=== PATIENT | male | born 1970 | race Caucasian/White ===

== ENCOUNTER 2016-08-27 15:00 | Emergency (ER) | payer BC ==
[~2016-08-27] VITALS: Ht 157.4 cm; Wt 72.6 kg
[2016-08-27] MEDS ORDERED: PREVACID30 M2 PO (15:14)
[2016-08-27] MEDS ORDERED: VENTOLIN H0.09 MG/AC INH (15:14)
[2016-08-27 16:11] LABS: BASO # 0.1 10*3/uL (0.0-0.1); BASO % 0.6 % (0.0-1.0); EOS # 0.3 10*3/uL (0.0-0.4); HEMOGLOBIN 15.4 g/dl (14.0-18.0); LYMPH # 2.8 10*3/uL (1.3-4.4); LYMPH % 35.4 % (27.0-41.0); MEAN CELL VOLUME 91.8 fl (80.0-94.0); MEAN CORPUSCULAR HGB 30.1 pg (27.0-31.0); MEAN CORPUSCULAR HGB CONC 32.8 g/dl (33.0-37.0); MEAN PLATELET VOLUME 9.3 fl (9.6-12.3); MONO # 0.9 10*3/uL (0.1-1.0); MONO % 11.6 % (3.0-9.0); NEUT # 3.7 10*3/uL (2.3-7.9); NEUT % 48.1 % (47.0-73.0); PLATELET COUNT AUTOMATED 199 10*3/uL (130-400); RED BLOOD COUNT 5.12 10*6/uL (4.50-5.90); RED CELL DISTRI WIDTH 13.5 % (0-14.5); WHITE BLOOD COUNT 7.8 10*3/uL (4.8-10.8)
[2016-08-27 16:26] LABS: ALBUMIN 3.5 gm/dl (3.1-4.5); ALKALINE PHOSPHATASE 59 U/L (45-117); BILIRUBIN, TOTAL 0.5 mg/dl (0.2-1.0); BUN 7 mg/dl (7-24); CARBON DIOXIDE 25 mmol/L (21-32); CHLORIDE 107 mmol/L (98-107); EST GLOM FILT AFRICAN AMERICAN > 60 ml/min; GLUCOSE 106 mg/dL (65-99); SGOT/AST 28 IU/L (3-35); SGPT/ALT 71 U/L (12-78); SODIUM 140 mmol/L (136-145); TOTAL PROTEIN 6.8 gm/dL (6.4-8.2)
== END 2016-08-27 17:29 | disposition home or self-care (01) ==
LOC: ED 15:00
PROVIDERS: Emergency Medicine
DX: J45.909 Unspecified asthma, uncomplicated (principal); F17.200 Nicotine dependence, unspecified, uncomplicated; Z79.899 Other long term (current) drug therapy

== ENCOUNTER → 2016-09-15 | Outpatient (CLI) | payer BC ==
[~2016-09-15] MED LIST: PREVACID30 M2 PO; VENTOLIN H0.09 MG/AC INH
== END | disposition home or self-care (01) ==
LOC: NM 09-11 07:00
DX: R10.13 Epigastric pain (principal)

== ENCOUNTER → 2017-01-17 | Day surgery (SDC) | payer OTHER ==
[~2017-01-17] VITALS: Ht 154.9 cm; Wt 88.9 kg
[~2017-01-17] MED LIST changes: +ALLERGY RELIEF10 M2 PO; +SERTRALINE HYD100 MG PO
--- NOTE | ~2017-01-17 | O ---
[place], [place] OPERATIVE NOTE NAME: ESTHER PEREZ UNIT #: [id number] ROOM: DOCTOR: NEIDA BAILEY MD BIRTHDATE: [birth year] DOS: 01/17/2017 INDICATIONS: A 46-year-old patient who has presented with blood in stool, undergoing investigation. ALLERGIES: No known medication. FAMILY HISTORY: Noncontributory. PAST SURGICAL HISTORY: Right hand. PAST MEDICAL HISTORY: Depression, dyspepsia, allergic rhinitis. SOCIAL HISTORY: Smoker, nonalcohol consumer. PROCEDURE: Today's procedure part of investigation is panendoscopy and colonoscopy. PREMEDICATION: Versed and Diprivan. SCOPE: Olympus forward-viewing gastroscope Q10 video. REPORT: After putting the patient in the left lateral position and after application of lubricant to the scope, the scope was introduced. Thereafter, under direct visualization, I advanced through the length of esophagus without difficulty. Hiatal hernia of 3 cm was noticed. Gastric pouch was entered. Gastritis was seen. Duodenal bulb, second and third part within normal limits. Antral biopsy obtained. The patient extubated, tolerated procedure well. IMPRESSION: Gastritis, hiatal hernia. PLAN AND DISCUSSION: We are going to continue with Prevacid or substituting with omeprazole 20 mg daily if there is a problem with refill of the prescription through insurance. Otherwise, I did not find any acute source of bleeding. I am going to proceed with colonoscopy. [place], [place] OPERATIVE NOTE NAME: ESTHER PEREZ UNIT #: [id number] ROOM: DOCTOR: NEIDA BAILEY MD BIRTHDATE: [birth year] NEIDA BAILEY MD CM:OPRECORD:OPERATIVE NOTE 1048 110 NEIDA BAILEY MD 01/17/17 1103 interface
--- NOTE | ~2017-01-17 | O ---
[place], [place] OPERATIVE NOTE NAME: ESTHER PEREZ UNIT #: [id number] ROOM: DOCTOR: LYNN PAYNE,NEIDA BIRTHDATE: [birth year] DOS: 01/17/2017 INDICATIONS: The patient has presented with rectal bleed, undergoing investigation. PROCEDURE: Today's procedure part of investigation is colonoscopy. PREMEDICATION: Versed and Diprivan. SCOPE: Olympus forward viewing colonoscope 10L video. REPORT: After putting the patient in the left lateral position and after application of lubricant to the scope, the scope was introduced. Thereafter, under direct visualization, advanced through the length of colon without difficulty. Base of the cecum explored, appendiceal orifice identified, and ileocecal valve was defined. No acute pathology was seen. Small hemorrhoid identified otherwise. The patient extubated, tolerated the procedure well. IMPRESSION: Small hemorrhoid. No acute pathology otherwise. PLAN AND DISCUSSION: High fiber fruit was recommended as diet. The patient was advised to have routine followup with you in office, p.r.n. visit with us in GI [facility]. Thank you very much indeed for your kind referral. NEIDA BAILEY MD CM:OPRECORD:OPERATIVE NOTE [id number] KEARA BAILEY MD 01/17/17 1105 interface
[2017-01-17 09:00] VITALS: BP 132/85
[2017-01-17 10:41] VITALS: BP 102/68
[2017-01-17 10:55] VITALS: BP 107/66
[2017-01-17 11:03] VITALS: BP 153/78
[2017-01-17 11:10] VITALS: BP 121/68
== END | disposition home or self-care (01) ==
LOC: SDC 01-12 08:45
DX: K64.9 Unspecified hemorrhoids (principal); K29.50 Unspecified chronic gastritis without bleeding; K44.9 Diaphragmatic hernia without obstruction or gangrene; F32.9 Major depressive disorder, single episode, unspecified; J30.9 Allergic rhinitis, unspecified; F17.210 Nicotine dependence, cigarettes, uncomplicated; J44.9 Chronic obstructive pulmonary disease, unspecified; Z98.890 Other specified postprocedural states

== ENCOUNTER 2017-04-03 23:23 | Inpatient (IN) | payer OTHER ==
[~2017-04-03] VITALS: Ht 154.9 cm; Wt 91.2 kg
--- NOTE | ~2017-04-03 | ST ---
[place], [place] EXERCISE STRESS TEST REPORT NAME: EST[facility]EREZ [facility] [id number] UNIT #: [id number] ROOM: 518 DOCTOR: SAMANTHA PAYNE,JULIANNA BIRTHDATE: [birth year] DOS: 04/04/2017 LEXISCAN STRESS TEST REFERRING PHYSICIAN: Dr. Ariel Corea. REASON FOR TEST: Chest pain. PHYSICAL EXAMINATION: NECK: Supple. LUNGS: Clear anteriorly. HEART: Regular rhythm. PROTOCOL: Lexiscan protocol. Maximum heart rate 132, peak blood pressure 162/72. SYMPTOMS: The patient is chest pain free. EKG: Resting EKG showed sinus rhythm. Stress EKG showed no ischemia, no arrhythmias. CONCLUSION: Clinically, the patient is chest pain free. EKG nonischemic. POST-STRESS COMPLICATIONS: None. The patient received total of 0.4 mg of Lexiscan. JULIANNA SINGH MD CM:STRESS:EXERCISE STRESS TEST REPORT [id number] JULIANNA SINGH MD
--- NOTE | ~2017-04-03 | CON ---
[place], [place] REPORT OF CONSULTATION [id number] UN[facility] #: [id number] ROOM: 518 DOCTOR: JULIANNA SINGH MD BIRTHDATE: [birth year] DOS: 04/04/2017 REFERRING PHYSICIAN: Dr. Corea. REASON FOR CONSULTATION: Chest pain. CLINICAL HISTORY: The patient is a 46-year-old gentleman with history of bipolar, asthma, obesity, came to the Emergency Room with shortness of breath and chest pain. The symptoms started on Sunday. His chest pain is in the midsternal area, nonradiating, mild in severity, it comes mostly at rest, lasts for a few minutes. No associated symptoms and pain relieves by itself. He described this as a sharp and aching sensation. His main complaint is progressive shortness of breath for the past several hours. He was scheduled to see Dr. Tay on 04/12/2017 for his asthma. He is also complaining of some progressive shortness of breath, but he does use albuterol inhaler from home. No edema, no palpitations, no dizziness, no PND or orthopnea. No cough or hemoptysis. No fever and chills. No nausea, vomiting, diarrhea. No genitourinary symptoms. No neurologic symptoms. No musculoskeletal symptoms. He did have some occasional dizziness, but no syncope, but one time, the chest pain did radiate down his both arms feeling like a tingling sensation. REVIEW OF SYSTEMS: Review of the 8 systems negative except as mentioned above. PAST MEDICAL HISTORY: 1. Asthma. 2. Acid reflux. 3. Bipolar. 4. Depression. PAST SURGICAL HISTORY: History of right arm surgery, history of colonoscopy and upper endoscopy. SOCIAL HISTORY: The patient does not drink alcohol, does not use drugs, but does smoke about one and half pack a day. FAMILY HISTORY: Noncontributory since he was adopted. ALLERGIES: No known drug allergies. HOME MEDICATIONS: Reviewed. PHYSICAL EXAMINATION: VITAL SIGNS: Blood pressure 130/70, pulse 68, respirations 18. GENERAL: Alert, comfortable, in no acute distress. HEAD AND NECK: Supple, no distended neck veins, no carotid bruit. Tongue was moist and pharynx was clear. CHEST: Symmetrical, nontender. LUNGS: A few scattered rhonchi. Good air entry bilaterally. No expiratory wheeze, no rales. HEART: Regular rhythm, no S3, no significant murmurs. No palpable thrills. [place], [place] REPORT OF CONSULTATION NAME: ESTHER PEREZ UNIT #: [id number] ROOM: 518 DOCTOR: SAMANTHA PAYNE,JULIANNA BIRTHDATE: [birth year] ABDOMEN: Nontender. Bowel sounds normal. No palpable masses. EXTREMITIES: Showed no edema. Distal pulses are palpable. The patient had healed scar on the right forearm. SKIN: Warm and dry. No cyanosis, no clubbing. RECTAL: Deferred. GENITOURINARY: Deferred. NEUROLOGIC: The patient is alert, oriented. No focal neurologic deficit. REVIEW OF THE DIAGNOSTIC TESTS: EKG, labs, rhythm strips reviewed. EKG showed normal sinus rhythm. Cardiac enzymes are unremarkable. IMPRESSION: 1. Chest pain, atypical, myocardial infarction ruled out. 2. Dyspnea, positive due to chronic obstructive pulmonary disease exacerbation. 3. Tobacco smoking. 4. History of asthma. 5. Bipolar disorder. 6. Overweight. RECOMMENDATIONS: 1. Chest pain, atypical EKG unremarkable. 2. Lexiscan stress test was scheduled to rule out ischemia due to symptoms and CAD risk factors. 3. A 2D echo was also ordered and is pending. 4. Risk factor modification to quit smoking and also diet, exercise, weight loss was discussed. Further recommendations based on his symptoms and about tests. Thank you, Dr. Corea, for asking us to evaluate this patient and we will follow the case along with you. JULIANNA SINGH MD CM:CONSTR:REPORT OF CONSULTATION 1426 04/05/17 0554 interface
[2017-04-03 23:24] VITALS: BP 155/96
[2017-04-03 23:56] LABS: BASO # 0.1 10*3/uL (0.0-0.1); BASO % 0.7 % (0.0-1.0); EOS # 0.5 10*3/uL (0.0-0.4); EOS % 6.1 % (1.0-4.0); HEMATOCRIT 43.2 % (42.0-52.0); HEMOGLOBIN 14.6 g/dl (14.0-18.0); LYMPH # 2.9 10*3/uL (1.3-4.4); LYMPH % 34.7 % (27.0-41.0); MEAN CELL VOLUME 85.5 fl (80.0-94.0); MEAN CORPUSCULAR HGB 28.9 pg (27.0-31.0); MEAN CORPUSCULAR HGB CONC 33.8 g/dl (33.0-37.0); MEAN PLATELET VOLUME 9.4 fl (9.6-12.3); MONO # 0.6 10*3/uL (0.1-1.0); MONO % 7.4 % (3.0-9.0); NEUT # 4.2 10*3/uL (2.3-7.9); NEUT % 50.9 % (47.0-73.0); PLATELET COUNT AUTOMATED 221 10*3/uL (130-400); RED BLOOD COUNT 5.05 10*6/uL (4.50-5.90); RED CELL DISTRI WIDTH 15.4 % (0-14.5); WHITE BLOOD COUNT 8.3 10*3/uL (4.8-10.8)
[2017-04-04 00:03] LABS: PROTHROMBIN TIME 10.4 SECONDS (9.0-12.4)
[2017-04-04 00:10] LABS: ALBUMIN 3.3 gm/dl (3.1-4.5); ALKALINE PHOSPHATASE 81 U/L (45-117); BILIRUBIN, TOTAL 0.2 mg/dl (0.2-1.0); BUN 12 mg/dl (7-24); CARBON DIOXIDE 28 mmol/L (21-32); CHLORIDE 108 mmol/L (98-107); EST GLOM FILT AFRICAN AMERICAN > 60 ml/min; GLUCOSE 113 mg/dL (65-99); MAGNESIUM 2.4 mg/dL (1.5-2.1); POTASSIUM 3.4 mmol/L (3.5-5.1); SGOT/AST 25 IU/L (3-35); SGPT/ALT 50 U/L (12-78); SODIUM 139 mmol/L (136-145); TOTAL PROTEIN 6.8 gm/dL (6.4-8.2)
[2017-04-04 00:11] LABS: TROPONIN I < 0.015 ng/ml (<0.045)
[2017-04-04 01:13] VITALS: BP 126/82
[2017-04-04 02:24] VITALS: BP 122/80
[2017-04-04 03:54] VITALS: BP 134/74
[2017-04-04 04:00] VITALS: BP 134/74
[2017-04-04] MEDS ORDERED: PROTONIX40 MG PO (04:06)
[2017-04-04] MEDS ORDERED: RISPERDAL1 M1 PO (04:08)
[2017-04-04 06:12] LABS: BASO % 0.4 % (0.0-1.0); EOS # 0.1 10*3/uL (0.0-0.4); EOS % 1.3 % (1.0-4.0); HEMATOCRIT 43.9 % (42.0-52.0); HEMOGLOBIN 14.8 g/dl (14.0-18.0); LYMPH # 0.9 10*3/uL (1.3-4.4); LYMPH % 11.3 % (27.0-41.0); MEAN CELL VOLUME 85.1 fl (80.0-94.0); MEAN CORPUSCULAR HGB 28.7 pg (27.0-31.0); MEAN CORPUSCULAR HGB CONC 33.7 g/dl (33.0-37.0); MEAN PLATELET VOLUME 9.7 fl (9.6-12.3); MONO # 0.2 10*3/uL (0.1-1.0); MONO % 2.9 % (3.0-9.0); NEUT # 6.6 10*3/uL (2.3-7.9); NEUT % 83.7 % (47.0-73.0); PLATELET COUNT AUTOMATED 216 10*3/uL (130-400); RED BLOOD COUNT 5.16 10*6/uL (4.50-5.90); RED CELL DISTRI WIDTH 15.4 % (0-14.5); WHITE BLOOD COUNT 7.9 10*3/uL (4.8-10.8)
[2017-04-04 06:34] LABS: BUN 12 mg/dl (7-24); CARBON DIOXIDE 27 mmol/L (21-32); CHLORIDE 108 mmol/L (98-107); CHOLESTEROL 157 mg/dL (<200); EST GLOM FILT AFRICAN AMERICAN > 60 ml/min; GLUCOSE 138 mg/dL (65-99); HDL CHOLESTEROL 32 mg/dl (40-60); LDL CHOLESTEROL 104 mg/dL (9-159); POTASSIUM 3.6 mmol/L (3.5-5.1); SODIUM 139 mmol/L (136-145); TRIGLYCERIDES 107 mg/dl (<150); VLDL CHOLESTEROL 21 mg/dL (6-40)
[2017-04-04 06:38] LABS: HEMOGLOBIN A1c 6.3 % (4.8-5.6)
[2017-04-04 06:47] LABS: FREE T4 0.97 ng/dl (0.76-1.46); THYROID STIM HORMONE (HS) 0.513 uIU/ml (0.358-4.75)
[2017-04-04 07:31] LABS: FOLIC ACID 18.39 ng/mL (>5.38); VITAMIN D, 25-HYDROXY 28.1 ng/mL (30-100)
[2017-04-04 08:00] VITALS: BP 129/69
[2017-04-04 12:00] VITALS: BP 142/81
[2017-04-04] MEDS ORDERED: VITAMIN D31000 UNIT PO (14:44)
[2017-04-04] MEDS ORDERED: PREDNISONE10 MG PO (14:44)
[2017-04-04] MEDS ORDERED: SINGULAIR10 M1 PO (14:44)
[2017-04-04] MEDS ORDERED: DULE1ARO INH (14:44)
== END 2017-04-04 16:43 | disposition home or self-care (01) | DRG 191 ==
LOC: ED 23:23 → 5E 04-04 02:22 → EDHOLD 04-04 02:22 → 5E 04-04 02:37
PROVIDERS: Emergency Medicine Emergency Medical Services; Family Medicine
DX: J44.1 Chronic obstructive pulmonary disease with (acute) exacerbation (principal); E44.0 Moderate protein-calorie malnutrition; E87.8 Other disorders of electrolyte and fluid balance, not elsewhere classified; J45.41 Moderate persistent asthma with (acute) exacerbation; E83.41 Hypermagnesemia; F31.30 Bipolar disorder, current episode depressed, mild or moderate severity, unspecified; R07.89 Other chest pain; E66.3 Overweight; K21.9 Gastro-esophageal reflux disease without esophagitis; E66.9 Obesity, unspecified; E87.6 Hypokalemia; F17.210 Nicotine dependence, cigarettes, uncomplicated; Z68.37 Body mass index [BMI] 37.0-37.9, adult; Z71.6 Tobacco abuse counseling

== ENCOUNTER → 2017-05-04 | Outpatient (CLI) | payer OTHER ==
[~2017-05-04] MED LIST changes: +DULE1ARO INH; +PREDNISONE10 MG PO; +PROTONIX40 MG PO; +RISPERDAL1 M1 PO; +SINGULAIR10 M1 PO; +VITAMIN D31000 UNIT PO
== END | disposition home or self-care (01) ==
LOC: US 05-03 16:00
DX: M79.605 Pain in left leg (principal); M79.604 Pain in right leg

== ENCOUNTER → 2017-05-28 | Outpatient (CLI) | payer OTHER ==
[2017-05-29 05:08] LABS: ALPHA-1-ANTITRYPSIN, SERUM 139 mg/dL (90-200)
== END | disposition home or self-care (01) ==
LOC: LAB 15:21
PROVIDERS: Internal Medicine Critical Care Medicine
DX: J44.9 Chronic obstructive pulmonary disease, unspecified (principal)

== ENCOUNTER 2017-07-15 14:49 | Emergency (ER) | payer OTHER ==
[~2017-07-15] VITALS: Ht 154.9 cm; Wt 88.5 kg
[2017-07-15] MEDS ORDERED: PREDNISONE10 MG PO (16:21)
[2017-07-15] MEDS ORDERED: GUAIFEN-CODEINE10 ML PO (16:21)
[2017-07-15] MEDS ORDERED: PROAIR HFA8.5 GM INH (16:21)
== END 2017-07-15 16:30 | disposition home or self-care (01) ==
LOC: ED 14:49
DX: R05 Cough (principal); R06.2 Wheezing; F17.200 Nicotine dependence, unspecified, uncomplicated; J44.9 Chronic obstructive pulmonary disease, unspecified

== ENCOUNTER 2017-11-29 01:04 | Inpatient (IN) | payer OTHER ==
[2017-11-29] VITALS (10 sets, daily range): BP systolic 111–151; BP diastolic 68–89
[~2017-11-29] VITALS: Ht 154.9 cm; Wt 93.2 kg
[~2017-11-29 01:04] MED LIST changes: +GUAIFEN-CODEINE10 ML PO; +PROAIR HFA8.5 GM INH
[2017-11-29] MEDS ORDERED: TRINTELLIX20 MG PO (01:15)
[2017-11-29] MEDS ORDERED: ARMODAFINIL150 MG PO (01:15)
[2017-11-29] MEDS ORDERED: ARIPIPRAZOLE5 MG PO (01:15)
[2017-11-29] MEDS ORDERED: DULER200 INH (01:17)
[2017-11-29] MEDS ORDERED: VENTOLIN 02.5 MG/3 M INH (01:17)
[2017-11-29 01:19] LABS: BASO # 0.1 10*3/uL (0.0-0.1); BASO % 0.7 % (0.0-1.0); EOS # 0.3 10*3/uL (0.0-0.4); EOS % 4.9 % (1.0-4.0); HEMATOCRIT 44.1 % (42.0-52.0); HEMOGLOBIN 14.1 g/dl (14.0-18.0); LYMPH # 2.1 10*3/uL (1.3-4.4); MEAN CELL VOLUME 82.1 fl (80.0-94.0); MEAN CORPUSCULAR HGB 26.3 pg (27.0-31.0); MEAN PLATELET VOLUME 8.8 fl (9.6-12.3); MONO # 0.6 10*3/uL (0.1-1.0); MONO % 8.9 % (3.0-9.0); NEUT # 3.7 10*3/uL (2.3-7.9); NEUT % 54.2 % (47.0-73.0); PLATELET COUNT AUTOMATED 196 10*3/uL (130-400); RED BLOOD COUNT 5.37 10*6/uL (4.50-5.90); RED CELL DISTRI WIDTH 17.9 % (0-14.5); WHITE BLOOD COUNT 6.8 10*3/uL (4.8-10.8)
[2017-11-29 01:30] LABS: ACT PARTIAL THROMBO TIME 25.2 SECONDS (20.8-31.5)
[2017-11-29 01:35] LABS: ALBUMIN 3.5 gm/dl (3.1-4.5); ALKALINE PHOSPHATASE 90 U/L (45-117); BUN 13 mg/dl (7-24); CHLORIDE 105 mmol/L (98-107); CREATININE 0.82 mg/dL (0.70-1.30); LIPASE 105 U/L (73-393); POTASSIUM 3.5 mmol/L (3.5-5.1); SGOT/AST 68 IU/L (3-35); SGPT/ALT 94 U/L (12-78); SODIUM 140 mmol/L (136-145); TOTAL PROTEIN 7.2 gm/dL (6.4-8.2)
[2017-11-29 01:36] LABS: TROPONIN I < 0.015 ng/ml (<0.045)
[2017-11-29 04:16] LABS: BASO % 0.4 % (0.0-1.0); EOS # 0.1 10*3/uL (0.0-0.4); EOS % 1.5 % (1.0-4.0); HEMATOCRIT 44.1 % (42.0-52.0); LYMPH # 1.8 10*3/uL (1.3-4.4); LYMPH % 24.9 % (27.0-41.0); MEAN CELL VOLUME 82.7 fl (80.0-94.0); MEAN CORPUSCULAR HGB 26.3 pg (27.0-31.0); MEAN CORPUSCULAR HGB CONC 31.7 g/dl (33.0-37.0); MEAN PLATELET VOLUME 9.2 fl (9.6-12.3); MONO # 0.2 10*3/uL (0.1-1.0); MONO % 3.1 % (3.0-9.0); NEUT # 5.2 10*3/uL (2.3-7.9); NEUT % 69.7 % (47.0-73.0); PLATELET COUNT AUTOMATED 214 10*3/uL (130-400); RED BLOOD COUNT 5.33 10*6/uL (4.50-5.90); WHITE BLOOD COUNT 7.4 10*3/uL (4.8-10.8)
[2017-11-29 04:30] LABS: ALBUMIN 3.7 gm/dl (3.1-4.5); ALKALINE PHOSPHATASE 100 U/L (45-117); BUN 13 mg/dl (7-24); CHLORIDE 106 mmol/L (98-107); CHOLESTEROL 163 mg/dL (<200); CREATININE 0.83 mg/dL (0.70-1.30); HDL CHOLESTEROL 32 mg/dl (40-60); LDL CHOLESTEROL 98 mg/dL (9-159); PHOSPHOROUS 1.4 mg/dL (2.5-4.9); POTASSIUM 3.6 mmol/L (3.5-5.1); SGOT/AST 197 IU/L (3-35); SGPT/ALT 185 U/L (12-78); SODIUM 138 mmol/L (136-145); TOTAL PROTEIN 7.3 gm/dL (6.4-8.2); TRIGLYCERIDES 163 mg/dl (<150); VLDL CHOLESTEROL 33 mg/dL (6-40)
[2017-11-29 04:34] LABS: THYROID STIM HORMONE (HS) 0.539 uIU/ml (0.358-4.75)
[2017-11-29 06:55] LABS: VITAMIN D, 25-HYDROXY 18.9 ng/mL (30-100)
[2017-11-29] MEDS ORDERED: FLOMAX0.4 MG PO (10:17)
[2017-11-30] VITALS: BP 142/84
[2017-11-30 06:06] LABS: BASO % 0.3 % (0.0-1.0); EOS % 0.3 % (1.0-4.0); HEMATOCRIT 42.3 % (42.0-52.0); HEMOGLOBIN 13.2 g/dl (14.0-18.0); LYMPH # 3.1 10*3/uL (1.3-4.4); LYMPH % 43.6 % (27.0-41.0); MEAN CELL VOLUME 83.3 fl (80.0-94.0); MEAN CORPUSCULAR HGB CONC 31.2 g/dl (33.0-37.0); MEAN PLATELET VOLUME 9.5 fl (9.6-12.3); MONO # 0.6 10*3/uL (0.1-1.0); MONO % 8.4 % (3.0-9.0); NEUT # 3.3 10*3/uL (2.3-7.9); NEUT % 47.1 % (47.0-73.0); PLATELET COUNT AUTOMATED 234 10*3/uL (130-400); RED BLOOD COUNT 5.08 10*6/uL (4.50-5.90); RED CELL DISTRI WIDTH 18.7 % (0-14.5)
[2017-11-30 06:11] LABS: ALBUMIN 3.6 gm/dl (3.1-4.5); BUN 15 mg/dl (7-24); CHLORIDE 108 mmol/L (98-107); CREATININE 0.75 mg/dL (0.70-1.30); PHOSPHOROUS 3.5 mg/dL (2.5-4.9); POTASSIUM 3.7 mmol/L (3.5-5.1); SGOT/AST 51 IU/L (3-35); SGPT/ALT 143 U/L (12-78); SODIUM 140 mmol/L (136-145); TOTAL PROTEIN 7.1 gm/dL (6.4-8.2)
[2017-11-30 06:12] LABS: ALKALINE PHOSPHATASE 86 U/L (45-117)
[2017-11-30 08:00] VITALS: BP 145/84
[2017-11-30] MEDS ORDERED: VITAMIN D-32000 UNIT PO (09:08)
[2017-11-30 10:08] LABS: HEPATITIS B SURFACE AG Negative (Negative); HEPATITIS C VIRUS ANTIBODY <0.1 s/co (0.0-0.9)
== END 2017-11-30 09:56 | disposition home or self-care (01) | DRG 392 ==
LOC: ED 01:04 → EDHOLD 02:47 → 4E 02:47
PROVIDERS: Internal Medicine; Internal Medicine Nephrology; Physician Assistant
PROC: 4A02XM4 Measurement of Cardiac Total Activity, External Approach (ICD-10-PCS; principal; 2017-11-29)
PROC: 3E073KZ Introduction of Other Diagnostic Substance into Coronary Artery, Percutaneous Approach (ICD-10-PCS; 2017-11-29)
DX: K21.9 Gastro-esophageal reflux disease without esophagitis (principal); D72.1 Eosinophilia; R65.10 Systemic inflammatory response syndrome (SIRS) of non-infectious origin without acute organ dysfunction; F31.30 Bipolar disorder, current episode depressed, mild or moderate severity, unspecified; R07.9 Chest pain, unspecified; E83.41 Hypermagnesemia; J44.9 Chronic obstructive pulmonary disease, unspecified; F17.200 Nicotine dependence, unspecified, uncomplicated; R00.0 Tachycardia, unspecified; R06.82 Tachypnea, not elsewhere classified; R73.9 Hyperglycemia, unspecified; R74.0 Nonspecific elevation of levels of transaminase and lactic acid dehydrogenase [LDH]; E66.09 Other obesity due to excess calories; Z79.899 Other long term (current) drug therapy; Z71.6 Tobacco abuse counseling; Z72.89 Other problems related to lifestyle; Z68.38 Body mass index [BMI] 38.0-38.9, adult

== ENCOUNTER → 2018-10-02 | Outpatient (CLI) | payer OTHER ==
[~2018-10-02] MED LIST changes: +ARIPIPRAZOLE5 MG PO; +ARMODAFINIL150 MG PO; +DULER200 INH; +FLOMAX0.4 MG PO; +TRINTELLIX20 MG PO; +VENTOLIN 02.5 MG/3 M INH; +VITAMIN D-32000 UNIT PO
== END | disposition home or self-care (01) ==
LOC: CARD 01:37
DX: R06.09 Other forms of dyspnea (principal)

== ENCOUNTER 2020-01-14 14:50 | Emergency (ER) | payer OTHER ==
[~2020-01-14] VITALS: Ht 152.4 cm; Wt 101.6 kg
[2020-01-14 15:29] LABS: BASO # 0.1 10*3/uL (0.0-0.1); BASO % 0.6 % (0.0-1.0); EOS # 0.5 10*3/uL (0.0-0.4); EOS % 5.6 % (1.0-4.0); HEMATOCRIT 49.8 % (42.0-52.0); LYMPH # 3.4 10*3/uL (1.3-4.4); LYMPH % 36.7 % (27.0-41.0); MEAN CELL VOLUME 90.5 fl (80.0-94.0); MEAN CORPUSCULAR HGB 30.5 pg (27.0-31.0); MEAN CORPUSCULAR HGB CONC 33.7 g/dl (33.0-37.0); MEAN PLATELET VOLUME 9.5 fl (9.6-12.3); MONO # 0.6 10*3/uL (0.1-1.0); NEUT # 4.7 10*3/uL (2.3-7.9); NEUT % 50.7 % (47.0-73.0); PLATELET COUNT AUTOMATED 252 10*3/uL (130-400); RED CELL DISTRI WIDTH 13.6 % (0-14.5); WHITE BLOOD COUNT 9.3 10*3/uL (4.8-10.8)
[2020-01-14 15:39] LABS: ACT PARTIAL THROMBO TIME 28.5 SECONDS (20.0-32.1)
[2020-01-14 15:45] LABS: ALBUMIN 3.5 gm/dl (3.1-4.5); ALKALINE PHOSPHATASE 77 U/L (45-117); BUN 14 mg/dl (7-24); CHLORIDE 107 mmol/L (98-107); CREATININE 0.85 mg/dL (0.70-1.30); LIPASE 115 U/L (73-393); SGOT/AST 35 IU/L (3-35); SGPT/ALT 80 U/L (12-78); SODIUM 143 mmol/L (136-145); TOTAL PROTEIN 7.2 gm/dL (6.4-8.2); TROPONIN I 0.036 ng/ml (<0.045)
[2020-01-14] MEDS ORDERED: PREDNISONE50 MG PO (18:08)
[2020-01-14] MEDS ORDERED: ZITHROMAX250 MG PO (18:08)
== END 2020-01-14 18:32 | disposition home or self-care (01) ==
LOC: ED 14:50
PROVIDERS: Emergency Medicine
DX: J20.9 Acute bronchitis, unspecified (principal); F17.200 Nicotine dependence, unspecified, uncomplicated; Z98.890 Other specified postprocedural states; Z79.899 Other long term (current) drug therapy

== ENCOUNTER → 2020-09-28 | Outpatient (CLI) | payer OTHER ==
[~2020-09-28] MED LIST changes: +PREDNISONE50 MG PO; +ZITHROMAX250 MG PO
== END | disposition home or self-care (01) ==
LOC: LAB 10:10
PROVIDERS: ATTEND Urology
DX: N40.1 Benign prostatic hyperplasia with lower urinary tract symptoms (principal)

== ENCOUNTER 2021-03-23 15:05 | Inpatient (IN) | payer OTHER ==
[~2021-03-23] VITALS: Ht 152.4 cm; Wt 90.7 kg
[2021-03-23 15:24] VITALS: BP 113/80
[2021-03-23 15:59] LABS: BASO # 0.1 10*3/uL (0.0-0.1); BASO % 0.9 % (0.0-1.0); EOS # 0.2 10*3/uL (0.0-0.4); EOS % 2.6 % (1.0-4.0); HEMATOCRIT 25.6 % (42.0-52.0); LYMPH # 1.9 10*3/uL (1.3-4.4); LYMPH % 27.2 % (27.0-41.0); MEAN CELL VOLUME 68.8 fl (80.0-94.0); MEAN CORPUSCULAR HGB 18.8 pg (27.0-31.0); MEAN CORPUSCULAR HGB CONC 27.3 g/dl (33.0-37.0); MEAN PLATELET VOLUME 9.3 fl (9.6-12.3); MONO # 0.4 10*3/uL (0.1-1.0); MONO % 5.8 % (3.0-9.0); NEUT # 4.5 10*3/uL (2.3-7.9); NEUT % 63.2 % (47.0-73.0); PLATELET COUNT AUTOMATED 299 10*3/uL (130-400); RED BLOOD COUNT 3.72 10*6/uL (4.50-5.90); RED CELL DISTRI WIDTH 17.8 % (0-14.5); WHITE BLOOD COUNT 7.1 10*3/uL (4.8-10.8)
[2021-03-23 16:13] LABS: ALBUMIN 3.4 gm/dl (3.1-4.5); ALKALINE PHOSPHATASE 88 U/L (45-117); BUN 11 mg/dl (7-24); CHLORIDE 108 mmol/L (98-107); CREATININE 0.89 mg/dL (0.70-1.30); LIPASE 91 U/L (73-393); POTASSIUM 3.6 mmol/L (3.5-5.1); SGOT/AST 17 IU/L (3-35); SGPT/ALT 26 U/L (12-78); SODIUM 140 mmol/L (136-145); TOTAL PROTEIN 7.4 gm/dL (6.4-8.2)
[2021-03-23 17:30] VITALS: BP 115/80
[2021-03-23 18:43] VITALS: BP 106/65
[2021-03-23 20:21] VITALS: BP 96/57
[2021-03-24] VITALS (11 sets, daily range): BP systolic 83–151; BP diastolic 27–78
[2021-03-24 05:11] LABS: ALBUMIN 3.1 gm/dl (3.1-4.5); BUN 12 mg/dl (7-24); CHLORIDE 109 mmol/L (98-107); CHOLESTEROL 127 mg/dL (<200); CREATININE 0.81 mg/dL (0.70-1.30); POTASSIUM 3.7 mmol/L (3.5-5.1); SGOT/AST 16 IU/L (3-35); SGPT/ALT 24 U/L (12-78); SODIUM 140 mmol/L (136-145); TRIGLYCERIDES 91 mg/dl (<150)
[2021-03-24 05:19] LABS: ALKALINE PHOSPHATASE 85 U/L (45-117); LDL CHOLESTEROL 76 mg/dL (9-159); THYROID STIM HORMONE (HS) 0.467 uIU/ml (0.358-4.75)
[2021-03-24 06:34] LABS: BASO # 0.1 10*3/uL (0.0-0.1); BASO % 0.8 % (0.0-1.0); EOS # 0.3 10*3/uL (0.0-0.4); EOS % 4.6 % (1.0-4.0); HEMATOCRIT 25.4 % (42.0-52.0); LYMPH # 1.8 10*3/uL (1.3-4.4); LYMPH % 29.7 % (27.0-41.0); MEAN CELL VOLUME 69.2 fl (80.0-94.0); MEAN CORPUSCULAR HGB 19.1 pg (27.0-31.0); MEAN CORPUSCULAR HGB CONC 27.6 g/dl (33.0-37.0); MEAN PLATELET VOLUME 10.4 fl (9.6-12.3); MONO # 0.5 10*3/uL (0.1-1.0); NEUT # 3.4 10*3/uL (2.3-7.9); NEUT % 56.6 % (47.0-73.0); PLATELET COUNT AUTOMATED 308 10*3/uL (130-400); RED BLOOD COUNT 3.67 10*6/uL (4.50-5.90); RED CELL DISTRI WIDTH 17.8 % (0-14.5)
[2021-03-24] MEDS ORDERED: ARIPIPRAZOLE15 MG PO (15:55)
[2021-03-24] MEDS ORDERED: BENZTROPINE ME0.5 MG PO (15:56)
[2021-03-24] MEDS ORDERED: HYDROXYZINE PAM50 MG PO (15:57)
[2021-03-25] VITALS (13 sets, daily range): BP systolic 118–158; BP diastolic 68–94
[2021-03-25 06:46] LABS: HEMATOCRIT 24.8 % (42.0-52.0); MEAN CELL VOLUME 68.1 fl (80.0-94.0); MEAN CORPUSCULAR HGB 18.7 pg (27.0-31.0); MEAN CORPUSCULAR HGB CONC 27.4 g/dl (33.0-37.0); MEAN PLATELET VOLUME 10.4 fl (9.6-12.3); PLATELET COUNT AUTOMATED 248 10*3/uL (130-400); RED BLOOD COUNT 3.64 10*6/uL (4.50-5.90); RED CELL DISTRI WIDTH 17.8 % (0-14.5); WHITE BLOOD COUNT 8.8 10*3/uL (4.8-10.8)
[2021-03-25 07:16] LABS: BASOPHILS 1 % (0-1); TOTAL CELLS COUNTED 100 #CELLS
[2021-03-25 07:17] LABS: MICROCYTOSIS SLIGHT; PLATELET SUFFICIENCY NORMAL (NORMAL); POLYCHROMASIA SLIGHT
[2021-03-25 07:21] LABS: ALBUMIN 2.9 gm/dl (3.1-4.5); ALKALINE PHOSPHATASE 81 U/L (45-117); BUN 14 mg/dl (7-24); CHLORIDE 113 mmol/L (98-107); CREATININE 0.73 mg/dL (0.70-1.30); POTASSIUM 3.7 mmol/L (3.5-5.1); SGOT/AST 22 IU/L (3-35); SGPT/ALT 32 U/L (12-78); SODIUM 143 mmol/L (136-145); TOTAL PROTEIN 6.6 gm/dL (6.4-8.2)
[2021-03-25 13:41] LABS: BASO % 0.5 % (0.0-1.0); EOS # 0.1 10*3/uL (0.0-0.4); EOS % 0.6 % (1.0-4.0); HEMATOCRIT 29.1 % (42.0-52.0); LYMPH # 1.9 10*3/uL (1.3-4.4); LYMPH % 21.7 % (27.0-41.0); MEAN CORPUSCULAR HGB CONC 27.8 g/dl (33.0-37.0); MEAN PLATELET VOLUME 10.2 fl (9.6-12.3); MONO # 0.6 10*3/uL (0.1-1.0); MONO % 7.3 % (3.0-9.0); NEUT # 6.1 10*3/uL (2.3-7.9); NEUT % 69.4 % (47.0-73.0); PLATELET COUNT AUTOMATED 243 10*3/uL (130-400); RED BLOOD COUNT 4.06 10*6/uL (4.50-5.90); RED CELL DISTRI WIDTH 19.6 % (0-14.5); WHITE BLOOD COUNT 8.8 10*3/uL (4.8-10.8)
[2021-03-25 13:42] LABS: MEAN CELL VOLUME 71.7 fl (80.0-94.0)
[2021-03-26] VITALS: BP 121/65
[2021-03-26 06:02] LABS: BASO % 0.3 % (0.0-1.0); EOS % 0.1 % (1.0-4.0); HEMATOCRIT 25.4 % (42.0-52.0); LYMPH # 2.1 10*3/uL (1.3-4.4); LYMPH % 30.7 % (27.0-41.0); MEAN CORPUSCULAR HGB 20.1 pg (27.0-31.0); MEAN CORPUSCULAR HGB CONC 28.7 g/dl (33.0-37.0); MEAN PLATELET VOLUME 10.3 fl (9.6-12.3); MONO # 0.5 10*3/uL (0.1-1.0); MONO % 7.5 % (3.0-9.0); NEUT # 4.2 10*3/uL (2.3-7.9); NUCLEATED RED BLOOD CELL 0.3 % (0.0-0.0); PLATELET COUNT AUTOMATED 224 10*3/uL (130-400); RED BLOOD COUNT 3.63 10*6/uL (4.50-5.90); RED CELL DISTRI WIDTH 19.1 % (0-14.5); WHITE BLOOD COUNT 6.8 10*3/uL (4.8-10.8)
[2021-03-26 06:12] LABS: BUN 14 mg/dl (7-24); CHLORIDE 113 mmol/L (98-107); CREATININE 0.72 mg/dL (0.70-1.30); POTASSIUM 4.1 mmol/L (3.5-5.1); SODIUM 143 mmol/L (136-145)
[2021-03-26 08:00] VITALS: BP 138/78
[2021-03-26 12:00] VITALS: BP 132/58
[2021-03-26 16:00] VITALS: BP 131/81
[2021-03-26 20:00] VITALS: BP 132/56
[2021-03-27] VITALS: BP 137/82
[2021-03-27 06:13] LABS: BASO % 0.5 % (0.0-1.0); EOS # 0.1 10*3/uL (0.0-0.4); EOS % 0.9 % (1.0-4.0); HEMATOCRIT 26.5 % (42.0-52.0); LYMPH # 2.8 10*3/uL (1.3-4.4); LYMPH % 33.6 % (27.0-41.0); MEAN CELL VOLUME 70.7 fl (80.0-94.0); MEAN CORPUSCULAR HGB 19.7 pg (27.0-31.0); MEAN CORPUSCULAR HGB CONC 27.9 g/dl (33.0-37.0); MEAN PLATELET VOLUME 10.6 fl (9.6-12.3); MONO # 0.6 10*3/uL (0.1-1.0); MONO % 7.5 % (3.0-9.0); NEUT # 4.7 10*3/uL (2.3-7.9); NEUT % 56.9 % (47.0-73.0); NUCLEATED RED BLOOD CELL 0.2 % (0.0-0.0); PLATELET COUNT AUTOMATED 240 10*3/uL (130-400); RED BLOOD COUNT 3.75 10*6/uL (4.50-5.90); RED CELL DISTRI WIDTH 19.7 % (0-14.5); WHITE BLOOD COUNT 8.2 10*3/uL (4.8-10.8)
[2021-03-27 06:16] LABS: BUN 12 mg/dl (7-24); CHLORIDE 112 mmol/L (98-107); CREATININE 0.73 mg/dL (0.70-1.30); POTASSIUM 3.8 mmol/L (3.5-5.1); SODIUM 142 mmol/L (136-145)
[2021-03-27 08:00] VITALS: BP 151/83
[2021-03-27 12:00] VITALS: BP 144/81
[2021-03-27 16:00] VITALS: BP 126/66
[2021-03-27 20:00] VITALS: BP 127/71
[2021-03-28] VITALS: BP 121/68
[2021-03-28 06:16] LABS: BASO % 0.4 % (0.0-1.0); EOS % 0.4 % (1.0-4.0); HEMATOCRIT 26.3 % (42.0-52.0); LYMPH # 2.3 10*3/uL (1.3-4.4); LYMPH % 29.3 % (27.0-41.0); MEAN CELL VOLUME 71.3 fl (80.0-94.0); MEAN CORPUSCULAR HGB 19.8 pg (27.0-31.0); MEAN CORPUSCULAR HGB CONC 27.8 g/dl (33.0-37.0); MEAN PLATELET VOLUME 10.3 fl (9.6-12.3); MONO # 0.5 10*3/uL (0.1-1.0); MONO % 6.8 % (3.0-9.0); NEUT % 62.7 % (47.0-73.0); NUCLEATED RED BLOOD CELL 0.3 % (0.0-0.0); PLATELET COUNT AUTOMATED 226 10*3/uL (130-400); RED BLOOD COUNT 3.69 10*6/uL (4.50-5.90); RED CELL DISTRI WIDTH 20.2 % (0-14.5)
[2021-03-28 08:00] VITALS: BP 151/89
[2021-03-28 12:00] VITALS: BP 144/85
[2021-03-28 16:00] VITALS: BP 150/76
[2021-03-28 20:00] VITALS: BP 139/73
[2021-03-29] VITALS: BP 157/75
[2021-03-29 08:00] VITALS: BP 154/86
[2021-03-29 08:19] LABS: BASO % 0.1 % (0.0-1.0); HEMATOCRIT 29.5 % (42.0-52.0); LYMPH # 1.7 10*3/uL (1.3-4.4); LYMPH % 17.9 % (27.0-41.0); MEAN CELL VOLUME 70.9 fl (80.0-94.0); MEAN CORPUSCULAR HGB 19.5 pg (27.0-31.0); MEAN CORPUSCULAR HGB CONC 27.5 g/dl (33.0-37.0); MEAN PLATELET VOLUME 10.4 fl (9.6-12.3); MONO # 0.6 10*3/uL (0.1-1.0); MONO % 5.8 % (3.0-9.0); NEUT # 7.2 10*3/uL (2.3-7.9); NEUT % 75.7 % (47.0-73.0); NUCLEATED RED BLOOD CELL 0.2 % (0.0-0.0); PLATELET COUNT AUTOMATED 248 10*3/uL (130-400); RED BLOOD COUNT 4.16 10*6/uL (4.50-5.90); RED CELL DISTRI WIDTH 20.6 % (0-14.5); WHITE BLOOD COUNT 9.6 10*3/uL (4.8-10.8)
[2021-03-29 08:33] LABS: BUN 16 mg/dl (7-24); CHLORIDE 105 mmol/L (98-107); CREATININE 0.82 mg/dL (0.70-1.30); POTASSIUM 4.2 mmol/L (3.5-5.1); SODIUM 137 mmol/L (136-145)
[2021-03-29] MEDS ORDERED: DULER200 INH (11:24)
[2021-03-29] MEDS ORDERED: DOXYCYCLINE MO100 M1 PO (11:24)
[2021-03-29] MEDS ORDERED: VENTOLIN 02.5 MG/3 M INH (11:24)
[2021-03-29] MEDS ORDERED: PREDNISONE10 MG PO ×2 (11:24)
[2021-03-29] MEDS ORDERED: PROTONIX40 MG PO (11:25)
[2021-03-29 12:00] VITALS: BP 142/69
== END 2021-03-29 12:52 | disposition home or self-care (01) | DRG 720 ==
LOC: ED 15:05 → 4E 17:20 → EDHOLD 17:20 → 4E 03-24 14:20
PROVIDERS: Family Medicine; Internal Medicine; Registered Nurse; Student in an Organized Health Care Education/Training Program; ADMIT Internal Medicine; ATTEND Internal Medicine
PROC: 0DJ08ZZ Inspection of Upper Intestinal Tract, Via Natural or Artificial Opening Endoscopic (ICD-10-PCS; 2021-03-24)
PROC: 30233N1 Transfusion of Nonautologous Red Blood Cells into Peripheral Vein, Percutaneous Approach (ICD-10-PCS; principal; 2021-03-25)
DX: A41.9 Sepsis, unspecified organism (principal); K64.9 Unspecified hemorrhoids; J20.9 Acute bronchitis, unspecified; J44.1 Chronic obstructive pulmonary disease with (acute) exacerbation; E87.8 Other disorders of electrolyte and fluid balance, not elsewhere classified; J44.0 Chronic obstructive pulmonary disease with (acute) lower respiratory infection; E83.41 Hypermagnesemia; R65.20 Severe sepsis without septic shock; E44.0 Moderate protein-calorie malnutrition; D50.9 Iron deficiency anemia, unspecified; J96.01 Acute respiratory failure with hypoxia; K62.5 Hemorrhage of anus and rectum; F17.210 Nicotine dependence, cigarettes, uncomplicated; Z71.6 Tobacco abuse counseling; Z79.51 Long term (current) use of inhaled steroids; Z79.899 Other long term (current) drug therapy; Z68.39 Body mass index [BMI] 39.0-39.9, adult

== ENCOUNTER 2021-04-26 12:17 | Inpatient (IN) | payer OTHER ==
[~2021-04-26] VITALS: Ht 152.4 cm; Wt 94.4 kg
[2021-04-26] VITALS (10 sets, daily range): BP systolic 127–146; BP diastolic 78–93
[~2021-04-26 12:17] MED LIST changes: +ARIPIPRAZOLE15 MG PO; +BENZTROPINE ME0.5 MG PO; +DOXYCYCLINE MO100 M1 PO; +HYDROXYZINE PAM50 MG PO
[2021-04-26 17:08] LABS: BASO # 0.1 10*3/uL (0.0-0.1); BASO % 0.6 % (0.0-1.0); EOS # 0.3 10*3/uL (0.0-0.4); EOS % 3.7 % (1.0-4.0); LYMPH # 2.9 10*3/uL (1.3-4.4); LYMPH % 34.2 % (27.0-41.0); MEAN CELL VOLUME 67.3 fl (80.0-94.0); MEAN CORPUSCULAR HGB 18.3 pg (27.0-31.0); MEAN CORPUSCULAR HGB CONC 27.1 g/dl (33.0-37.0); MEAN PLATELET VOLUME 8.6 fl (9.6-12.3); MONO # 0.6 10*3/uL (0.1-1.0); MONO % 6.6 % (3.0-9.0); NEUT # 4.6 10*3/uL (2.3-7.9); NEUT % 54.4 % (47.0-73.0); NUCLEATED RED BLOOD CELL 0.2 % (0.0-0.0); PLATELET COUNT AUTOMATED 348 10*3/uL (130-400); RED BLOOD COUNT 4.16 10*6/uL (4.50-5.90); RED CELL DISTRI WIDTH 21.2 % (0-14.5); WHITE BLOOD COUNT 8.5 10*3/uL (4.8-10.8)
[2021-04-26 17:23] LABS: ALBUMIN 3.2 gm/dl (3.1-4.5); ALKALINE PHOSPHATASE 83 U/L (45-117); BUN 13 mg/dl (7-24); CHLORIDE 106 mmol/L (98-107); CREATININE 0.89 mg/dL (0.70-1.30); POTASSIUM 3.8 mmol/L (3.5-5.1); SGOT/AST 15 IU/L (3-35); SGPT/ALT 34 U/L (12-78); SODIUM 140 mmol/L (136-145); TOTAL PROTEIN 7.2 gm/dL (6.4-8.2)
[2021-04-27 00:19] LABS: BASO # 0.1 10*3/uL (0.0-0.1); BASO % 0.7 % (0.0-1.0); EOS # 0.4 10*3/uL (0.0-0.4); EOS % 4.1 % (1.0-4.0); HEMATOCRIT 29.5 % (42.0-52.0); LYMPH # 2.6 10*3/uL (1.3-4.4); LYMPH % 29.8 % (27.0-41.0); MEAN CORPUSCULAR HGB 19.7 pg (27.0-31.0); MEAN CORPUSCULAR HGB CONC 27.8 g/dl (33.0-37.0); MEAN PLATELET VOLUME 9.6 fl (9.6-12.3); MONO # 0.7 10*3/uL (0.1-1.0); MONO % 7.9 % (3.0-9.0); PLATELET COUNT AUTOMATED 301 10*3/uL (130-400); RED BLOOD COUNT 4.17 10*6/uL (4.50-5.90); RED CELL DISTRI WIDTH 23.8 % (0-14.5); WHITE BLOOD COUNT 8.8 10*3/uL (4.8-10.8)
[2021-04-27 00:20] LABS: MEAN CELL VOLUME 70.7 fl (80.0-94.0)
[2021-04-27 00:41] VITALS: BP 126/66
[2021-04-27 04:53] VITALS: BP 137/77
[2021-04-27 05:49] LABS: BUN 14 mg/dl (7-24); CHLORIDE 108 mmol/L (98-107); CREATININE 0.84 mg/dL (0.70-1.30); SODIUM 140 mmol/L (136-145)
[2021-04-27 06:16] LABS: BASO # 0.1 10*3/uL (0.0-0.1); BASO % 0.7 % (0.0-1.0); EOS # 0.3 10*3/uL (0.0-0.4); EOS % 4.2 % (1.0-4.0); HEMATOCRIT 28.9 % (42.0-52.0); LYMPH # 2.1 10*3/uL (1.3-4.4); LYMPH % 27.7 % (27.0-41.0); MEAN CELL VOLUME 69.6 fl (80.0-94.0); MEAN CORPUSCULAR HGB 19.5 pg (27.0-31.0); MEAN PLATELET VOLUME 9.6 fl (9.6-12.3); MONO # 0.5 10*3/uL (0.1-1.0); MONO % 7.2 % (3.0-9.0); NEUT # 4.5 10*3/uL (2.3-7.9); NEUT % 59.5 % (47.0-73.0); PLATELET COUNT AUTOMATED 330 10*3/uL (130-400); RED BLOOD COUNT 4.15 10*6/uL (4.50-5.90); RED CELL DISTRI WIDTH 23.3 % (0-14.5); WHITE BLOOD COUNT 7.5 10*3/uL (4.8-10.8)
[2021-04-27 10:40] VITALS: BP 129/83
[2021-04-27 13:42] VITALS: BP 140/86
[2021-04-27 15:50] VITALS: BP 138/86
[2021-04-27 20:00] VITALS: BP 135/77
[2021-04-28] VITALS: BP 147/82
[2021-04-28 06:50] LABS: BASO # 0.1 10*3/uL (0.0-0.1); BASO % 0.8 % (0.0-1.0); EOS # 0.3 10*3/uL (0.0-0.4); EOS % 4.2 % (1.0-4.0); HEMATOCRIT 31.1 % (42.0-52.0); LYMPH # 2.3 10*3/uL (1.3-4.4); MEAN CELL VOLUME 69.7 fl (80.0-94.0); MEAN CORPUSCULAR HGB 19.3 pg (27.0-31.0); MEAN CORPUSCULAR HGB CONC 27.7 g/dl (33.0-37.0); MEAN PLATELET VOLUME 9.4 fl (9.6-12.3); MONO # 0.5 10*3/uL (0.1-1.0); MONO % 7.1 % (3.0-9.0); NEUT # 3.5 10*3/uL (2.3-7.9); NEUT % 52.6 % (47.0-73.0); PLATELET COUNT AUTOMATED 334 10*3/uL (130-400); RED BLOOD COUNT 4.46 10*6/uL (4.50-5.90); RED CELL DISTRI WIDTH 23.3 % (0-14.5); WHITE BLOOD COUNT 6.7 10*3/uL (4.8-10.8)
[2021-04-28 07:23] LABS: BUN 12 mg/dl (7-24); CHLORIDE 107 mmol/L (98-107); POTASSIUM 3.8 mmol/L (3.5-5.1); SODIUM 139 mmol/L (136-145)
[2021-04-28 07:26] LABS: CREATININE 0.78 mg/dL (0.70-1.30)
[2021-04-28 08:00] VITALS: BP 139/82
[2021-04-28 12:00] VITALS: BP 125/78
== END 2021-04-28 14:25 | disposition home or self-care (01) | DRG 253 ==
LOC: ED 12:17 → 4E 18:19 → EDHOLD 18:19 → 4E 04-27 15:33
PROVIDERS: Emergency Medicine; Hospitalist; Internal Medicine; ADMIT Student in an Organized Health Care Education/Training Program; ATTEND Student in an Organized Health Care Education/Training Program
PROC: 30233N1 Transfusion of Nonautologous Red Blood Cells into Peripheral Vein, Percutaneous Approach (ICD-10-PCS; principal; 2021-04-26)
DX: K62.5 Hemorrhage of anus and rectum (principal); J45.909 Unspecified asthma, uncomplicated; K21.9 Gastro-esophageal reflux disease without esophagitis; F31.30 Bipolar disorder, current episode depressed, mild or moderate severity, unspecified; D50.9 Iron deficiency anemia, unspecified; E83.41 Hypermagnesemia; R73.9 Hyperglycemia, unspecified; F17.210 Nicotine dependence, cigarettes, uncomplicated; Z71.6 Tobacco abuse counseling; J44.9 Chronic obstructive pulmonary disease, unspecified; Z79.51 Long term (current) use of inhaled steroids; Z79.899 Other long term (current) drug therapy

== ENCOUNTER 2021-08-10 08:34 | Inpatient (IN) | payer OTHER ==
[2021-08-10] VITALS (14 sets, daily range): BP systolic 109–141; BP diastolic 59–84
[~2021-08-10] VITALS: Ht 152 cm; Wt 100.0 kg
[2021-08-10] MEDS ORDERED: ALTOPREV20 MG PO (08:46)
[2021-08-10] MEDS ORDERED: LISINOPRIL20 MG PO (08:46)
[2021-08-10] MEDS ORDERED: TRINTELLIX20 MG PO (08:47)
[2021-08-10 09:50] LABS: ALBUMIN 3.2 gm/dl (3.1-4.5); ALKALINE PHOSPHATASE 96 U/L (45-117); BUN 8 mg/dl (7-24); CHLORIDE 104 mmol/L (98-107); CREATININE 1.04 mg/dL (0.70-1.30); POTASSIUM 3.8 mmol/L (3.5-5.1); SGOT/AST 11 IU/L (3-35); SGPT/ALT 25 U/L (12-78); SODIUM 136 mmol/L (136-145); TOTAL PROTEIN 7.3 gm/dL (6.4-8.2)
[2021-08-10 10:08] LABS: MEAN CELL VOLUME 63.3 fl (80.0-94.0); MEAN CORPUSCULAR HGB 15.8 pg (27.0-31.0); MEAN CORPUSCULAR HGB CONC 24.9 g/dl (33.0-37.0); MEAN PLATELET VOLUME 10.3 fl (9.6-12.3); NUCLEATED RED BLOOD CELL 0.1 10*3/uL (0.0-0.0); NUCLEATED RED BLOOD CELL 0.7 % (0.0-0.0); PLATELET COUNT AUTOMATED 294 10*3/uL (130-400); RED BLOOD COUNT 3.11 10*6/uL (4.50-5.90); RED CELL DISTRI WIDTH 21.2 % (0-14.5); WHITE BLOOD COUNT 8.2 10*3/uL (4.8-10.8)
[2021-08-10 10:10] LABS: HEMATOCRIT 19.7 % (42.0-52.0)
[2021-08-10 10:12] LABS: ATYPICAL LYMPHS 1 % (0-0); BASOPHILS 2 % (0-1); MICROCYTOSIS MODERATE; OVALOCYTES FEW; POLYCHROMASIA SLIGHT; TOTAL CELLS COUNTED 100 #CELLS
[2021-08-10 10:13] LABS: PLATELET SUFFICIENCY NORMAL (NORMAL); SCHISTOCYTES FEW
[2021-08-10 17:31] LABS: BASO # 0.1 10*3/uL (0.0-0.1); BASO % 0.8 % (0.0-1.0); EOS # 0.3 10*3/uL (0.0-0.4); EOS % 2.5 % (1.0-4.0); HEMATOCRIT 26.7 % (42.0-52.0); LYMPH # 2.5 10*3/uL (1.3-4.4); MEAN CORPUSCULAR HGB 18.5 pg (27.0-31.0); MEAN CORPUSCULAR HGB CONC 27.7 g/dl (33.0-37.0); MEAN PLATELET VOLUME 10.1 fl (9.6-12.3); MONO # 0.8 10*3/uL (0.1-1.0); MONO % 7.8 % (3.0-9.0); NEUT # 6.4 10*3/uL (2.3-7.9); NEUT % 63.6 % (47.0-73.0); NUCLEATED RED BLOOD CELL 0.1 10*3/uL (0.0-0.0); NUCLEATED RED BLOOD CELL 0.6 % (0.0-0.0); PLATELET COUNT AUTOMATED 322 10*3/uL (130-400); RED BLOOD COUNT 3.99 10*6/uL (4.50-5.90); RED CELL DISTRI WIDTH 27.1 % (0-14.5)
[2021-08-10 17:32] LABS: MEAN CELL VOLUME 66.9 fl (80.0-94.0)
[2021-08-11] VITALS (13 sets, daily range): BP systolic 112–139; BP diastolic 60–88
[2021-08-11 06:25] LABS: BASO # 0.1 10*3/uL (0.0-0.1); BASO % 0.7 % (0.0-1.0); EOS # 0.3 10*3/uL (0.0-0.4); EOS % 4.1 % (1.0-4.0); LYMPH % 26.7 % (27.0-41.0); MEAN CELL VOLUME 66.7 fl (80.0-94.0); MEAN CORPUSCULAR HGB 18.7 pg (27.0-31.0); MEAN PLATELET VOLUME 10.1 fl (9.6-12.3); MONO # 0.6 10*3/uL (0.1-1.0); NEUT # 4.5 10*3/uL (2.3-7.9); NUCLEATED RED BLOOD CELL 0.3 % (0.0-0.0); PLATELET COUNT AUTOMATED 278 10*3/uL (130-400); RED BLOOD COUNT 3.75 10*6/uL (4.50-5.90); RED CELL DISTRI WIDTH 26.5 % (0-14.5); WHITE BLOOD COUNT 7.5 10*3/uL (4.8-10.8)
[2021-08-11 06:31] LABS: ACT PARTIAL THROMBO TIME 27.3 SECONDS (20.0-32.1)
[2021-08-11 06:34] LABS: BUN 11 mg/dl (7-24); CHLORIDE 104 mmol/L (98-107); CREATININE 0.92 mg/dL (0.70-1.30); SODIUM 138 mmol/L (136-145)
[2021-08-12] VITALS: BP 120/69
[2021-08-12 06:24] LABS: BASO % 0.2 % (0.0-1.0); EOS # 0.2 10*3/uL (0.0-0.4); EOS % 1.2 % (1.0-4.0); HEMATOCRIT 26.7 % (42.0-52.0); LYMPH % 15.2 % (27.0-41.0); MEAN CORPUSCULAR HGB 19.6 pg (27.0-31.0); MEAN CORPUSCULAR HGB CONC 28.5 g/dl (33.0-37.0); MEAN PLATELET VOLUME 9.9 fl (9.6-12.3); MONO # 1.2 10*3/uL (0.1-1.0); MONO % 9.1 % (3.0-9.0); NEUT # 9.6 10*3/uL (2.3-7.9); NEUT % 73.8 % (47.0-73.0); PLATELET COUNT AUTOMATED 284 10*3/uL (130-400); RED BLOOD COUNT 3.87 10*6/uL (4.50-5.90); RED CELL DISTRI WIDTH 28.7 % (0-14.5); WHITE BLOOD COUNT 12.9 10*3/uL (4.8-10.8)
[2021-08-12 06:26] LABS: BUN 12 mg/dl (7-24); CHLORIDE 106 mmol/L (98-107); CREATININE 0.86 mg/dL (0.70-1.30); POTASSIUM 3.8 mmol/L (3.5-5.1); SODIUM 138 mmol/L (136-145)
[2021-08-12 08:00] VITALS: BP 130/85
[2021-08-12] MEDS ORDERED: COLACE100 MG PO (10:27)
[2021-08-12 12:00] VITALS: BP 136/85
== END 2021-08-12 13:10 | disposition home or self-care (01) | DRG 226 ==
LOC: ED 08:34 → 4E 10:20 → EDHOLD 10:20 → 4E 20:39
PROVIDERS: Internal Medicine; ADMIT Internal Medicine; ATTEND Internal Medicine
PROC: 30233N1 Transfusion of Nonautologous Red Blood Cells into Peripheral Vein, Percutaneous Approach (ICD-10-PCS; 2021-08-10)
PROC: 06BY0ZC Excision of Hemorrhoidal Plexus, Open Approach (ICD-10-PCS; principal; 2021-08-11)
DX: K64.8 Other hemorrhoids (principal); K92.2 Gastrointestinal hemorrhage, unspecified; E66.01 Morbid (severe) obesity due to excess calories; E44.1 Mild protein-calorie malnutrition; Z68.41 Body mass index [BMI] 40.0-44.9, adult; F31.30 Bipolar disorder, current episode depressed, mild or moderate severity, unspecified; K21.9 Gastro-esophageal reflux disease without esophagitis; J45.909 Unspecified asthma, uncomplicated; J44.9 Chronic obstructive pulmonary disease, unspecified; D50.0 Iron deficiency anemia secondary to blood loss (chronic); R73.9 Hyperglycemia, unspecified; F17.210 Nicotine dependence, cigarettes, uncomplicated; Z71.6 Tobacco abuse counseling; Z79.51 Long term (current) use of inhaled steroids; Z79.899 Other long term (current) drug therapy

== ENCOUNTER 2021-09-08 11:43 | Inpatient (IN) | payer OTHER ==
[~2021-09-08] VITALS: Ht 152.4 cm; Wt 93.2 kg
[~2021-09-08 11:43] MED LIST changes: +ALTOPREV20 MG PO; +COLACE100 MG PO; +LISINOPRIL20 MG PO
[2021-09-08 11:51] VITALS: BP 118/68
[2021-09-08 12:28] LABS: HEMATOCRIT 30.7 % (42.0-52.0); MEAN CELL VOLUME 65.2 fl (80.0-94.0); MEAN CORPUSCULAR HGB 18.7 pg (27.0-31.0); MEAN CORPUSCULAR HGB CONC 28.7 g/dl (33.0-37.0); MEAN PLATELET VOLUME 9.2 fl (9.6-12.3); PLATELET COUNT AUTOMATED 204 10*3/uL (130-400); RED BLOOD COUNT 4.71 10*6/uL (4.50-5.90); RED CELL DISTRI WIDTH 25.6 % (0-14.5); WHITE BLOOD COUNT 7.9 10*3/uL (4.8-10.8)
[2021-09-08 12:29] VITALS: BP 121/59
[2021-09-08 12:33] LABS: LYMPH % 21.7 % (27.0-41.0); MONO % 14.6 % (3.0-9.0); NEUT % 61.8 % (47.0-73.0)
[2021-09-08 12:34] LABS: BASO % 0.5 % (0.0-1.0); EOS # 0.1 10*3/uL (0.0-0.4); LYMPH # 1.7 10*3/uL (1.3-4.4); MONO # 1.2 10*3/uL (0.1-1.0); NEUT # 4.9 10*3/uL (2.3-7.9)
[2021-09-08 12:38] LABS: ACT PARTIAL THROMBO TIME 28.5 SECONDS (20.0-32.1); INTERNATIONAL NORM RATIO 1.1 (2.0-3.5)
[2021-09-08 12:44] LABS: ALBUMIN 3.4 gm/dl (3.1-4.5); ALKALINE PHOSPHATASE 77 U/L (45-117); BUN 7 mg/dl (7-24); CHLORIDE 104 mmol/L (98-107); CREATININE 0.98 mg/dL (0.70-1.30); POTASSIUM 3.3 mmol/L (3.5-5.1); SGOT/AST 19 IU/L (3-35); SGPT/ALT 29 U/L (12-78); SODIUM 137 mmol/L (136-145); TOTAL PROTEIN 7.2 gm/dL (6.4-8.2)
[2021-09-08 12:46] LABS: ETHYL ALCOHOL < 3.0 mg/dl (<3)
[2021-09-08 15:23] LABS: BILIRUBIN Negative (Negative); BLOOD Negative (Negative); CLARITY Clear (Clear); COLOR Yellow (Yellow); GLUCOSE Negative (Negative); KETONE Negative (Negative); LEUKO ESTERASE Negative (Negative); NITRITE Negative (Negative); PH 7.5 (4.5-8.0); UROBILINOGEN 0.2 E.U./dl (0.0-1.0)
[2021-09-08 15:37] LABS: BACTERIA TRACE; WBC 0-2 wbc/hpf (0-5)
[2021-09-08 17:49] LABS: ABG BASE EXCESS 3.8 mmol/L (-2.0-2.0); ARTERIAL BLOOD GAS PH 7.49 (7.35-7.45); ARTERIAL BLOOD GAS PO2 70.9 (80-90)
[2021-09-08 19:40] VITALS: BP 114/62
[2021-09-08 22:52] VITALS: BP 110/64
[2021-09-08 23:51] VITALS: BP 135/69
[2021-09-09] MEDS ORDERED: OMEPRAZOLE MAGN20 MG PO (03:39)
[2021-09-09 06:21] LABS: HEMATOCRIT 31.7 % (42.0-52.0); LYMPH # 1.1 10*3/uL (1.3-4.4); LYMPH % 45.1 % (27.0-41.0); MEAN CELL VOLUME 66.6 fl (80.0-94.0); MEAN CORPUSCULAR HGB 18.5 pg (27.0-31.0); MEAN CORPUSCULAR HGB CONC 27.8 g/dl (33.0-37.0); MEAN PLATELET VOLUME 9.4 fl (9.6-12.3); MONO # 0.1 10*3/uL (0.1-1.0); MONO % 4.2 % (3.0-9.0); NEUT # 1.2 10*3/uL (2.3-7.9); NEUT % 50.7 % (47.0-73.0); PLATELET COUNT AUTOMATED 219 10*3/uL (130-400); RED BLOOD COUNT 4.76 10*6/uL (4.50-5.90); RED CELL DISTRI WIDTH 25.9 % (0-14.5); WHITE BLOOD COUNT 2.4 10*3/uL (4.8-10.8)
[2021-09-09 06:39] LABS: BUN 11 mg/dl (7-24); CHLORIDE 106 mmol/L (98-107); CREATININE 0.83 mg/dL (0.70-1.30); SODIUM 138 mmol/L (136-145)
[2021-09-09 06:40] LABS: POTASSIUM 4.6 mmol/L (3.5-5.1)
[2021-09-09 08:00] VITALS: BP 115/75
[2021-09-09 12:00] VITALS: BP 120/71
[2021-09-09] MEDS ORDERED: PREDNISONE50 MG PO (12:34)
[2021-09-09] MEDS ORDERED: ZITHROMAX250 MG PO (12:34)
[2021-09-09] MEDS ORDERED: OMNICEF300 MG PO (12:35)
== END 2021-09-09 13:45 | disposition home or self-care (01) | DRG 720 ==
LOC: ED 11:43 → EDHOLD 16:30 → 4E 16:30 → EDHOLD 17:33 → 4E 22:10
PROVIDERS: Emergency Medicine; Internal Medicine; ADMIT Internal Medicine; ATTEND Internal Medicine
DX: A41.9 Sepsis, unspecified organism (principal); U07.1 COVID-19; J44.1 Chronic obstructive pulmonary disease with (acute) exacerbation; E87.2 Acidosis; R65.20 Severe sepsis without septic shock; F17.210 Nicotine dependence, cigarettes, uncomplicated; K21.9 Gastro-esophageal reflux disease without esophagitis; J45.909 Unspecified asthma, uncomplicated; F31.30 Bipolar disorder, current episode depressed, mild or moderate severity, unspecified; E87.6 Hypokalemia; J12.82 Pneumonia due to coronavirus disease 2019; J44.0 Chronic obstructive pulmonary disease with (acute) lower respiratory infection; Z79.51 Long term (current) use of inhaled steroids; Z79.2 Long term (current) use of antibiotics; Z79.899 Other long term (current) drug therapy; Z71.6 Tobacco abuse counseling

== ENCOUNTER 2021-12-19 19:09 | Inpatient (IN) | payer OTHER ==
[~2021-12-19] VITALS: Ht 152.4 cm; Wt 100.7 kg
[~2021-12-19 19:09] MED LIST changes: +OMEPRAZOLE MAGN20 MG PO; +OMNICEF300 MG PO
[2021-12-19 19:14] VITALS: BP 126/79
[2021-12-19 19:40] LABS: BASO # 0.1 10*3/uL (0.0-0.1); EOS # 0.5 10*3/uL (0.0-0.4); EOS % 5.5 % (1.0-4.0); HEMATOCRIT 36.4 % (42.0-52.0); LYMPH # 3.7 10*3/uL (1.3-4.4); LYMPH % 40.4 % (27.0-41.0); MEAN CELL VOLUME 66.5 fl (80.0-94.0); MEAN CORPUSCULAR HGB 18.1 pg (27.0-31.0); MEAN CORPUSCULAR HGB CONC 27.2 g/dl (33.0-37.0); MEAN PLATELET VOLUME 9.2 fl (9.6-12.3); MONO # 0.6 10*3/uL (0.1-1.0); MONO % 6.9 % (3.0-9.0); NEUT # 4.2 10*3/uL (2.3-7.9); NEUT % 45.9 % (47.0-73.0); PLATELET COUNT AUTOMATED 236 10*3/uL (130-400); RED BLOOD COUNT 5.47 10*6/uL (4.50-5.90); RED CELL DISTRI WIDTH 21.2 % (0-14.5); WHITE BLOOD COUNT 9.2 10*3/uL (4.8-10.8)
[2021-12-19 19:59] LABS: ALKALINE PHOSPHATASE 86 U/L (45-117); BUN 11 mg/dl (7-24); CHLORIDE 106 mmol/L (98-107); CREATININE 0.85 mg/dL (0.70-1.30); POTASSIUM 3.9 mmol/L (3.5-5.1); SGOT/AST 23 IU/L (3-35); SGPT/ALT 46 U/L (12-78); SODIUM 139 mmol/L (136-145); TOTAL PROTEIN 7.1 gm/dL (6.4-8.2)
[2021-12-19 20:00] LABS: ACT PARTIAL THROMBO TIME 26.6 SECONDS (20.0-32.1); INTERNATIONAL NORM RATIO 0.9 (2.0-3.5)
[2021-12-20] VITALS (7 sets, daily range): BP systolic 108–133; BP diastolic 57–76
[2021-12-20 06:25] LABS: BUN 12 mg/dl (7-24); CHLORIDE 104 mmol/L (98-107); POTASSIUM 4.6 mmol/L (3.5-5.1); SODIUM 137 mmol/L (136-145)
[2021-12-20 06:32] LABS: ALKALINE PHOSPHATASE 94 U/L (45-117); CHOLESTEROL 171 mg/dL (<200); CREATININE 1.08 mg/dL (0.70-1.30); LDL CHOLESTEROL 119 mg/dL (9-159); SGOT/AST 23 IU/L (3-35); SGPT/ALT 52 U/L (12-78); TOTAL PROTEIN 8.1 gm/dL (6.4-8.2); TRIGLYCERIDES 69 mg/dl (<150)
[2021-12-20 06:39] LABS: BASO % 0.1 % (0.0-1.0); HEMATOCRIT 40.6 % (42.0-52.0); LYMPH # 1.3 10*3/uL (1.3-4.4); LYMPH % 19.6 % (27.0-41.0); MEAN CELL VOLUME 67.3 fl (80.0-94.0); MEAN CORPUSCULAR HGB 18.1 pg (27.0-31.0); MEAN CORPUSCULAR HGB CONC 26.8 g/dl (33.0-37.0); MEAN PLATELET VOLUME 9.1 fl (9.6-12.3); MONO % 0.6 % (3.0-9.0); NEUT # 5.3 10*3/uL (2.3-7.9); NEUT % 79.3 % (47.0-73.0); RED BLOOD COUNT 6.03 10*6/uL (4.50-5.90); RED CELL DISTRI WIDTH 21.4 % (0-14.5); WHITE BLOOD COUNT 6.7 10*3/uL (4.8-10.8)
[2021-12-20 06:42] LABS: PLATELET COUNT AUTOMATED 342 10*3/uL (130-400)
[2021-12-21] VITALS: BP 91/47
[2021-12-21 06:34] LABS: BASO % 0.1 % (0.0-1.0); HEMATOCRIT 37.1 % (42.0-52.0); LYMPH # 1.6 10*3/uL (1.3-4.4); LYMPH % 15.1 % (27.0-41.0); MEAN CELL VOLUME 66.8 fl (80.0-94.0); MEAN PLATELET VOLUME 9.4 fl (9.6-12.3); MONO # 0.6 10*3/uL (0.1-1.0); MONO % 5.5 % (3.0-9.0); NEUT # 8.4 10*3/uL (2.3-7.9); NEUT % 78.7 % (47.0-73.0); PLATELET COUNT AUTOMATED 314 10*3/uL (130-400); RED BLOOD COUNT 5.55 10*6/uL (4.50-5.90); RED CELL DISTRI WIDTH 21.4 % (0-14.5); WHITE BLOOD COUNT 10.7 10*3/uL (4.8-10.8)
[2021-12-21 07:01] LABS: CHLORIDE 106 mmol/L (98-107); CREATININE 0.92 mg/dL (0.70-1.30); POTASSIUM 4.9 mmol/L (3.5-5.1); SODIUM 139 mmol/L (136-145)
[2021-12-21 07:07] LABS: BUN 23 mg/dl (7-24)
[2021-12-21 08:00] VITALS: BP 111/60
[2021-12-21 12:00] VITALS: BP 134/56
[2021-12-21 16:00] VITALS: BP 127/61
[2021-12-21 20:00] VITALS: BP 126/63
[2021-12-22] VITALS: BP 132/63
[2021-12-22 06:11] LABS: BUN 24 mg/dl (7-24); CHLORIDE 104 mmol/L (98-107); CREATININE 0.89 mg/dL (0.70-1.30); POTASSIUM 4.4 mmol/L (3.5-5.1); SODIUM 140 mmol/L (136-145)
[2021-12-22 06:31] LABS: BASO % 0.1 % (0.0-1.0); HEMATOCRIT 36.7 % (42.0-52.0); LYMPH # 2.3 10*3/uL (1.3-4.4); LYMPH % 18.8 % (27.0-41.0); MEAN CELL VOLUME 66.2 fl (80.0-94.0); MEAN CORPUSCULAR HGB 18.1 pg (27.0-31.0); MEAN CORPUSCULAR HGB CONC 27.2 g/dl (33.0-37.0); MEAN PLATELET VOLUME 9.5 fl (9.6-12.3); MONO # 0.6 10*3/uL (0.1-1.0); NEUT # 9.1 10*3/uL (2.3-7.9); NEUT % 75.7 % (47.0-73.0); PLATELET COUNT AUTOMATED 308 10*3/uL (130-400); RED BLOOD COUNT 5.54 10*6/uL (4.50-5.90); RED CELL DISTRI WIDTH 21.2 % (0-14.5)
[2021-12-22 08:00] VITALS: BP 137/70
[2021-12-22 12:00] VITALS: BP 132/58
[2021-12-22] MEDS ORDERED: PREDNISONE10 MG PO (12:01)
[2021-12-22] MEDS ORDERED: ZITHROMAX250 MG PO (12:01)
[2021-12-22] MEDS ORDERED: Ipratropium Brom3 ML INH (12:01)
[2021-12-22] MEDS ORDERED: MUCINEX1200 M1 PO (12:03)
[2021-12-22] MEDS ORDERED: NEBULIZER NEB (12:03)
== END 2021-12-22 13:30 | disposition home or self-care (01) | DRG 203 ==
LOC: ED 19:09 → 4E 12-20 02:34 → EDHOLD 12-20 02:34 → 4E 12-20 02:44
PROVIDERS: Emergency Medicine; Hospitalist; Student in an Organized Health Care Education/Training Program; ADMIT Family Medicine; ATTEND Family Medicine
PROC: 5A09357 Assistance with Respiratory Ventilation, Less than 24 Consecutive Hours, Continuous Positive Airway Pressure (ICD-10-PCS; principal; 2021-12-20)
DX: M94.0 Chondrocostal junction syndrome [Tietze] (principal); J18.9 Pneumonia, unspecified organism; J44.1 Chronic obstructive pulmonary disease with (acute) exacerbation; F31.30 Bipolar disorder, current episode depressed, mild or moderate severity, unspecified; I50.32 Chronic diastolic (congestive) heart failure; J44.0 Chronic obstructive pulmonary disease with (acute) lower respiratory infection; F17.210 Nicotine dependence, cigarettes, uncomplicated; Z71.6 Tobacco abuse counseling; D50.9 Iron deficiency anemia, unspecified; K21.9 Gastro-esophageal reflux disease without esophagitis; J45.20 Mild intermittent asthma, uncomplicated; J98.11 Atelectasis; Z79.51 Long term (current) use of inhaled steroids; Z79.899 Other long term (current) drug therapy

== ENCOUNTER → 2022-05-26 | Outpatient (CLI) | payer OTHER ==
[~2022-05-26] MED LIST changes: +Ipratropium Brom3 ML INH; +MUCINEX1200 M1 PO; +NEBULIZER NEB
== END | disposition home or self-care (01) ==
LOC: CARD 00:18
PROVIDERS: ATTEND Internal Medicine Cardiovascular Disease
DX: I49.3 Ventricular premature depolarization (principal); R53.83 Other fatigue

== ENCOUNTER → 2023-01-31 | Outpatient (CLI) | payer OTHER ==
[2023-01-31 13:27] LABS: BASO # 0.1 10*3/uL (0.0-0.1); BASO % 0.8 % (0.0-1.0); EOS # 0.4 10*3/uL (0.0-0.4); HEMATOCRIT 45.7 % (42.0-52.0); LYMPH # 3.2 10*3/uL (1.3-4.4); LYMPH % 33.5 % (27.0-41.0); MEAN CELL VOLUME 83.9 fl (80.0-94.0); MEAN CORPUSCULAR HGB 28.1 pg (27.0-31.0); MEAN CORPUSCULAR HGB CONC 33.5 g/dl (33.0-37.0); MEAN PLATELET VOLUME 9.1 fl (9.6-12.3); MONO # 0.6 10*3/uL (0.1-1.0); MONO % 5.8 % (3.0-9.0); NEUT # 5.3 10*3/uL (2.3-7.9); NEUT % 55.3 % (47.0-73.0); PLATELET COUNT AUTOMATED 250 10*3/uL (130-400); RED BLOOD COUNT 5.45 10*6/uL (4.50-5.90); RED CELL DISTRI WIDTH 15.8 % (0-14.5); WHITE BLOOD COUNT 9.7 10*3/uL (4.8-10.8)
== END | disposition home or self-care (01) ==
LOC: LAB 13:11
PROVIDERS: ATTEND Internal Medicine Critical Care Medicine
DX: Z79.899 Other long term (current) drug therapy (principal)

== ENCOUNTER → 2023-03-06 | Outpatient (CLI) | payer OTHER ==
[2023-03-06 09:46] LABS: HEMATOCRIT 51.1 % (42.0-52.0); MEAN CELL VOLUME 88.4 fl (80.0-94.0); MEAN CORPUSCULAR HGB 29.4 pg (27.0-31.0); MEAN CORPUSCULAR HGB CONC 33.3 g/dl (33.0-37.0); MEAN PLATELET VOLUME 9.8 fl (9.6-12.3); PLATELET COUNT AUTOMATED 267 10*3/uL (130-400); RED BLOOD COUNT 5.78 10*6/uL (4.50-5.90); RED CELL DISTRI WIDTH 16.7 % (0-14.5); WHITE BLOOD COUNT 9.7 10*3/uL (4.8-10.8)
[2023-03-06 09:47] LABS: MANUAL DIFF REFLEX YES
[2023-03-06 10:27] LABS: ALKALINE PHOSPHATASE 100 U/L (46-116); BUN 13 mg/dl (9-23); CHLORIDE 104 mmol/L (98-107); CHOLESTEROL 181 mg/dL (<200); LDL CHOLESTEROL 122 mg/dL (9-159); POTASSIUM 4.2 mmol/L (3.4-5.1); SGPT/ALT 75 U/L (10-49); TOTAL PROTEIN 7.8 gm/dL (6.0-8.0); TRIGLYCERIDES 145 mg/dl (<150)
[2023-03-06 10:42] LABS: ATYPICAL LYMPHS 7 % (0-0); TOTAL CELLS COUNTED 100 #CELLS
[2023-03-06 10:43] LABS: PLATELET SUFFICIENCY NORMAL (NORMAL)
== END | disposition home or self-care (01) ==
LOC: LAB 09:26
PROVIDERS: ATTEND Nurse Practitioner Family
DX: I10 Essential (primary) hypertension (principal); D64.9 Anemia, unspecified; E55.9 Vitamin D deficiency, unspecified

== ENCOUNTER 2023-03-11 23:34 | Inpatient (IN) | payer OTHER ==
[~2023-03-11] VITALS: Ht 152.4 cm; Wt 93.9 kg
[2023-03-11] MEDS ORDERED: ARIPIPRAZOLE15 MG PO (23:41)
[2023-03-11 23:54] VITALS: BP 134/52
[2023-03-12] VITALS (17 sets, daily range): BP systolic 78–134; BP diastolic 45–73
[2023-03-12 00:45] LABS: BASO # 0.1 10*3/uL (0.0-0.1); BASO % 0.6 % (0.0-1.0); EOS # 0.3 10*3/uL (0.0-0.4); EOS % 2.1 % (1.0-4.0); HEMATOCRIT 53.2 % (42.0-52.0); LYMPH # 3.7 10*3/uL (1.3-4.4); LYMPH % 24.8 % (27.0-41.0); MEAN CELL VOLUME 87.4 fl (80.0-94.0); MEAN CORPUSCULAR HGB 29.1 pg (27.0-31.0); MEAN CORPUSCULAR HGB CONC 33.3 g/dl (33.0-37.0); MEAN PLATELET VOLUME 10.1 fl (9.6-12.3); MONO # 0.9 10*3/uL (0.1-1.0); MONO % 6.4 % (3.0-9.0); NEUT # 9.6 10*3/uL (2.3-7.9); NEUT % 65.6 % (47.0-73.0); PLATELET COUNT AUTOMATED 344 10*3/uL (130-400); RED BLOOD COUNT 6.09 10*6/uL (4.50-5.90); RED CELL DISTRI WIDTH 16.8 % (0-14.5); WHITE BLOOD COUNT 14.7 10*3/uL (4.8-10.8)
[2023-03-12 01:12] LABS: POTASSIUM 4.9 mmol/L (3.4-5.1); TOTAL PROTEIN 8.1 gm/dL (6.0-8.0)
[2023-03-12 14:06] LABS: BILIRUBIN Negative (Negative); BLOOD Negative (Negative); CLARITY Cloudy (Clear); COLOR Yellow (Yellow); GLUCOSE Negative (Negative); KETONE Trace (Negative); LEUKO ESTERASE Trace (Negative); NITRITE Negative (Negative)
[2023-03-12 14:23] LABS: URINE CREATININE RANDOM 272.4 mg/dL
[2023-03-12 14:25] LABS: BACTERIA 2+; MUCOUS 2+
[2023-03-12] MEDS ORDERED: MUCINEX ER600 MG PO (18:17)
[2023-03-12] MEDS ORDERED: OMEPRAZOLE MAGN20 MG PO (18:17)
[2023-03-12] MEDS ORDERED: HYDROCHLOROTHIA25 M1 PO (18:18)
[2023-03-13] VITALS: BP 111/63
[2023-03-13 06:35] LABS: BASO % 0.1 % (0.0-1.0); HEMATOCRIT 48.4 % (42.0-52.0); LYMPH # 2.2 10*3/uL (1.3-4.4); LYMPH % 24.4 % (27.0-41.0); MEAN CELL VOLUME 88.8 fl (80.0-94.0); MEAN CORPUSCULAR HGB 29.7 pg (27.0-31.0); MEAN CORPUSCULAR HGB CONC 33.5 g/dl (33.0-37.0); MEAN PLATELET VOLUME 9.8 fl (9.6-12.3); MONO # 0.2 10*3/uL (0.1-1.0); MONO % 2.5 % (3.0-9.0); NEUT # 6.4 10*3/uL (2.3-7.9); NEUT % 72.4 % (47.0-73.0); PLATELET COUNT AUTOMATED 249 10*3/uL (130-400); RED BLOOD COUNT 5.45 10*6/uL (4.50-5.90); RED CELL DISTRI WIDTH 16.4 % (0-14.5); WHITE BLOOD COUNT 8.8 10*3/uL (4.8-10.8)
[2023-03-13 07:01] LABS: ALKALINE PHOSPHATASE 105 U/L (46-116); BUN 23 mg/dl (9-23); CHLORIDE 108 mmol/L (98-107); CHOLESTEROL 154 mg/dL (<200); FREE T4 1.11 ng/dl (0.89-1.76); LDL CHOLESTEROL 93 mg/dL (9-159); POTASSIUM 5.8 mmol/L (3.4-5.1); SGPT/ALT 124 U/L (10-49); TOTAL PROTEIN 7.1 gm/dL (6.0-8.0); TRIGLYCERIDES 121 mg/dl (<150)
[2023-03-13 07:20] LABS: VITAMIN D, 25-HYDROXY 35.4 ng/mL (30-100)
[2023-03-13 08:00] VITALS: BP 143/81
[2023-03-13 12:00] VITALS: BP 140/82
[2023-03-13 16:00] VITALS: BP 146/80
[2023-03-13 17:54] LABS: BUN 26 mg/dl (9-23); CHLORIDE 106 mmol/L (98-107); POTASSIUM 5.1 mmol/L (3.4-5.1)
[2023-03-13 20:00] VITALS: BP 140/71
[2023-03-14] VITALS: BP 127/84
[2023-03-14 08:00] VITALS: BP 146/76
[2023-03-14 09:49] LABS: BUN 28 mg/dl (9-23); CHLORIDE 107 mmol/L (98-107); POTASSIUM 4.6 mmol/L (3.4-5.1)
[2023-03-14 12:00] VITALS: BP 153/90
[2023-03-14 16:00] VITALS: BP 142/75
[2023-03-14 20:00] VITALS: BP 131/79
[2023-03-15] VITALS: BP 131/69
[2023-03-15 08:00] VITALS: BP 135/70
[2023-03-15 08:36] LABS: BUN 24 mg/dl (9-23); CHLORIDE 106 mmol/L (98-107)
[2023-03-15] MEDS ORDERED: PREDNISONE10 MG PO (11:55)
[2023-03-15] MEDS ORDERED: ALTOPREV20 MG PO (11:55)
[2023-03-15] MEDS ORDERED: DULE1ARO INH (11:55)
[2023-03-15] MEDS ORDERED: OMNICEF300 MG PO (11:55)
[2023-03-15] MEDS ORDERED: NORVASC2.5 MG PO (11:55)
[2023-03-15 12:00] VITALS: BP 138/91
== END 2023-03-15 13:54 | disposition home or self-care (01) | DRG 720 ==
LOC: ED 23:34 → 4E 03-12 06:30 → EDHOLD 03-12 06:30 → 4E 03-12 14:59
PROVIDERS: Emergency Medicine; Internal Medicine Nephrology; Registered Nurse; ADMIT Internal Medicine; ATTEND Internal Medicine
DX: A41.9 Sepsis, unspecified organism (principal); N17.0 Acute kidney failure with tubular necrosis; J44.1 Chronic obstructive pulmonary disease with (acute) exacerbation; N28.89 Other specified disorders of kidney and ureter; E78.5 Hyperlipidemia, unspecified; E87.1 Hypo-osmolality and hyponatremia; I95.1 Orthostatic hypotension; R74.01 Elevation of levels of liver transaminase levels; E86.0 Dehydration; F31.30 Bipolar disorder, current episode depressed, mild or moderate severity, unspecified; F17.210 Nicotine dependence, cigarettes, uncomplicated; S31.829A Unspecified open wound of left buttock, initial encounter; S31.819A Unspecified open wound of right buttock, initial encounter; I50.32 Chronic diastolic (congestive) heart failure; J44.0 Chronic obstructive pulmonary disease with (acute) lower respiratory infection; R65.20 Severe sepsis without septic shock; J20.9 Acute bronchitis, unspecified; E11.65 Type 2 diabetes mellitus with hyperglycemia; I11.0 Hypertensive heart disease with heart failure; X58.XXXA Exposure to other specified factors, initial encounter; Y93.89 Activity, other specified; Y92.89 Other specified places as the place of occurrence of the external cause; Y99.8 Other external cause status

== ENCOUNTER → 2023-04-03 | Outpatient (CLI) | payer OTHER ==
[~2023-04-03] MED LIST changes: +HYDROCHLOROTHIA25 M1 PO; +MUCINEX ER600 MG PO; +NORVASC2.5 MG PO
== END | disposition home or self-care (01) ==
LOC: RAD 11:53
PROVIDERS: ATTEND Nurse Practitioner Family
DX: J43.9 Emphysema, unspecified (principal)

== ENCOUNTER → 2023-04-05 | Outpatient (CLI) | payer OTHER ==
[2023-04-05 12:14] LABS: BASO % 0.4 % (0.0-1.0); EOS # 0.2 10*3/uL (0.0-0.4); EOS % 2.8 % (1.0-4.0); HEMATOCRIT 43.3 % (42.0-52.0); LYMPH # 3.3 10*3/uL (1.3-4.4); LYMPH % 44.4 % (27.0-41.0); MEAN CELL VOLUME 92.5 fl (80.0-94.0); MEAN CORPUSCULAR HGB 29.7 pg (27.0-31.0); MEAN CORPUSCULAR HGB CONC 32.1 g/dl (33.0-37.0); MEAN PLATELET VOLUME 9.6 fl (9.6-12.3); MONO # 0.5 10*3/uL (0.1-1.0); MONO % 6.1 % (3.0-9.0); NEUT # 3.4 10*3/uL (2.3-7.9); PLATELET COUNT AUTOMATED 174 10*3/uL (130-400); RED BLOOD COUNT 4.68 10*6/uL (4.50-5.90); RED CELL DISTRI WIDTH 16.2 % (0-14.5); WHITE BLOOD COUNT 7.4 10*3/uL (4.8-10.8)
[2023-04-05 12:39] LABS: ALKALINE PHOSPHATASE 110 U/L (46-116); BUN 8 mg/dl (9-23); CHLORIDE 105 mmol/L (98-107); CHLORIDE 107 mmol/L (98-107); POTASSIUM 3.4 mmol/L (3.4-5.1); SGPT/ALT 207 U/L (10-49); TOTAL PROTEIN 6.5 gm/dL (6.0-8.0)
== END | disposition home or self-care (01) ==
LOC: MRI 04-03 11:00 → LAB 10:29 → MRI 11:00
PROVIDERS: ATTEND Urology
DX: N20.0 Calculus of kidney (principal); D40.0 Neoplasm of uncertain behavior of prostate; I10 Essential (primary) hypertension; R53.83 Other fatigue; N17.9 Acute kidney failure, unspecified

== ENCOUNTER → 2023-04-06 | Outpatient (CLI) | payer OTHER ==
[2023-04-06 12:04] LABS: BILIRUBIN Negative (Negative); BLOOD Negative (Negative); CLARITY Clear (Clear); COLOR Yellow (Yellow); GLUCOSE Negative (Negative); KETONE Negative (Negative); LEUKO ESTERASE Negative (Negative); NITRITE Negative (Negative); SPECIFIC GRAVITY 1.015 (1.001-1.030)
[2023-04-06 12:41] LABS: MUCOUS 4+
[2023-04-06 13:28] LABS: WBC 0-2 wbc/hpf (0-5)
== END | disposition home or self-care (01) ==
LOC: LAB 11:01
PROVIDERS: ATTEND Urology
DX: I10 Essential (primary) hypertension (principal); D40.0 Neoplasm of uncertain behavior of prostate; N20.0 Calculus of kidney; R53.83 Other fatigue

== ENCOUNTER → 2023-06-06 | Outpatient (CLI) | payer OTHER ==
[2023-06-06 11:35] LABS: HEMATOCRIT 51.1 % (42.0-52.0); MEAN CELL VOLUME 86.6 fl (80.0-94.0); MEAN CORPUSCULAR HGB CONC 32.3 g/dl (33.0-37.0); MEAN PLATELET VOLUME 10.1 fl (9.6-12.3); PLATELET COUNT AUTOMATED 243 10*3/uL (130-400); RED CELL DISTRI WIDTH 13.5 % (0-14.5)
[2023-06-06 11:41] LABS: MANUAL DIFF REFLEX YES
[2023-06-06 11:45] LABS: BILIRUBIN Negative (Negative); BLOOD Negative (Negative); CLARITY Clear (Clear); COLOR Yellow (Yellow); GLUCOSE Negative (Negative); KETONE Negative (Negative); LEUKO ESTERASE Negative (Negative); NITRITE Negative (Negative); SPECIFIC GRAVITY 1.015 (1.001-1.030)
[2023-06-06 11:52] LABS: URINE CREATININE RANDOM 168.03 mg/dL
[2023-06-06 11:54] LABS: ATYPICAL LYMPHS 5 % (0-0); TOTAL CELLS COUNTED 100 #CELLS
[2023-06-06 11:55] LABS: BURR CELLS FEW; PLATELET SUFFICIENCY NORMAL (NORMAL); POLYCHROMASIA SLIGHT; ROULEAUX SLIGHT
[2023-06-06 12:15] LABS: HYALINE CAST 0-2; MUCOUS 1+; RBC 0-2 rbc/hpf (0-2)
[2023-06-06 12:18] LABS: BUN 6 mg/dl (9-23); CHLORIDE 102 mmol/L (98-107); POTASSIUM 2.9 mmol/L (3.4-5.1)
== END | disposition home or self-care (01) ==
LOC: LAB 10:53
PROVIDERS: ATTEND Nurse Practitioner Family
DX: N17.9 Acute kidney failure, unspecified (principal)

== ENCOUNTER 2023-12-18 13:32 | Emergency (ER) | payer MEDICARE, MEDICAID ==
[~2023-12-18] VITALS: Ht 152.4 cm; Wt 95.7 kg
[~2023-12-18 13:32] MED LIST changes: +ASPIRIN ADULT L81 M2 PO; +CLOPIDOGREL75 MG PO; +CLOTRIMAZOLE45 G1 T; +DOXYCYCLINE HY100 M3 PO; +Humalog SQ; +Ipratropium Brom3 ML NEB; +LEVETIRACETAM500 MG PO; +METOPROLOL SUCC25 M2 PO; +POTASSIUM CHLO20 ME4 PO; +SIMVASTATIN20 MG PO; +TORSEMIDE20 MG PO
[2023-12-18] MEDS ORDERED: SODIUM CHLORIDE 0.9% 1,000 ML IV SCH (13:50)
[2023-12-18] MEDS ORDERED: NOREPINEPHRINE BITARTRATE/D5W 250 ML IV SCH (14:00)
[2023-12-18 14:05] LABS: ABG BASE EXCESS -20.3 mmol/L (-2.0-2.0)
[2023-12-18 14:08] LABS: ARTERIAL BLOOD GAS PH 7.136 (7.35-7.45)
[2023-12-18] MEDS ORDERED: Amiodarone Hydrochloride 150 MG in DEXTROSE 5% 100 ML IV ONE (14:10)
[2023-12-18] MEDS ORDERED: ADENOSINE 6 MG/2 ML VIAL IV ONE ×2 (14:13→14:17)
[2023-12-18] MEDS ORDERED: Amiodarone Hydrochloride 900 MG in DEXTROSE 5% 500 ML IV SCH (14:15)
[2023-12-18] MEDS ORDERED: Ketamine Hydrochloride 500 MG/10 ML VIAL IV ONE ×2 (14:20→22:11)
[2023-12-18] MEDS ORDERED: ROCURONIUM BROMIDE 50 MG/5 ML SYRINGE IV ONE (14:20)
[2023-12-18] MEDS ORDERED: SODIUM BICARBONATE 50 MEQ/50 ML VIAL IV ONE ×2 (14:40)
[2023-12-18 15:02] LABS: HEMATOCRIT 56.3 % (42.0-52.0); MEAN CELL VOLUME 97.4 fl (80.0-94.0); MEAN CORPUSCULAR HGB 30.1 pg (27.0-31.0); MEAN CORPUSCULAR HGB CONC 30.9 g/dl (33.0-37.0); MEAN PLATELET VOLUME 10.7 fl (9.6-12.3); NUCLEATED RED BLOOD CELL 0.1 % (0.0-0.0); PLATELET COUNT AUTOMATED 331 10*3/uL (130-400); RED BLOOD COUNT 5.78 10*6/uL (4.50-5.90); RED CELL DISTRI WIDTH 14.6 % (0-14.5); WHITE BLOOD COUNT 22.6 10*3/uL (4.8-10.8)
[2023-12-18] MEDS ORDERED: Lidocaine Hydrochloride 100 MG/5 ML SYR IV ONE (15:05)
[2023-12-18 15:07] LABS: MANUAL DIFF REFLEX YES
[2023-12-18] MEDS ORDERED: Ketamine Hydrochloride 500 MG,IV 1 EA in SODIUM CHLORIDE 0.9% 500 ML IV SCH (15:10)
[2023-12-18] MEDS ORDERED: SODIUM CHLORIDE 0.9% IV SCH (15:15)
[2023-12-18] MEDS ORDERED: KETAMINE HYDROCHLORIDE IV SCH (15:15)
[2023-12-18 15:18] LABS: ACT PARTIAL THROMBO TIME 27.9 SECONDS (20.0-32.1)
[2023-12-18 15:25] LABS: ALKALINE PHOSPHATASE 109 U/L (46-116); BUN 91 mg/dl (9-23); CHLORIDE 115 mmol/L (98-107); LIPASE 107 U/L (12-53); SGPT/ALT 102 U/L (5-49); TOTAL PROTEIN 8.6 gm/dL (6.0-8.0)
[2023-12-18 15:29] LABS: BURR CELLS MODERATE; PLATELET SUFFICIENCY NORMAL (NORMAL); TOTAL CELLS COUNTED 100 #CELLS
[2023-12-18] MEDS ORDERED: Piperacillin Sodium/Tazobact 50 ML IV ONE (15:30)
[2023-12-18] MEDS ORDERED: VANCOMYCIN/WATER FOR INJ (PEG) 300 ML IV ONE (15:30)
[2023-12-18] MEDS ORDERED: Pantoprazole Sodium 40 MG in SODIUM CHLORIDE 0.9% 50 ML IV SCH (15:30)
[2023-12-18] MEDS ORDERED: VASOPRESSIN 100 ML IV SCH (15:40)
[2023-12-18] MEDS ORDERED: CALCIUM GLUCONATE 1 GM/10 ML VIAL IV ONE (15:50)
[2023-12-18] MEDS ORDERED: Albuterol Sulfate 2.5 MG/3 ML VIAL NEB ONE (15:50)
[2023-12-18] MEDS ORDERED: DEXTROSE 50% 25 GM/50 ML SYR IV ONE (15:50)
[2023-12-18] MEDS ORDERED: INSULIN REGULAR, HUMAN 1 UNIT/0.01 ML IV ONE (15:50)
[2023-12-18] MEDS ORDERED: Heparin Sodium/Sodium Chlori 1,000 UNITS/500 ML BAG IV SCH (16:20)
[2023-12-18 18:20] LABS: CPK 2320 U/L (34-171); MYOGLOBIN > 10000.0 ng/ml (16-116)
== END 2023-12-18 19:40 | disposition short-term general hospital (02) ==
LOC: ED 13:32
PROVIDERS: Internal Medicine
DX: J96.90 Respiratory failure, unspecified, unspecified whether with hypoxia or hypercapnia (principal); N19 Unspecified kidney failure; R65.21 Severe sepsis with septic shock; J44.9 Chronic obstructive pulmonary disease, unspecified; E11.9 Type 2 diabetes mellitus without complications; F32.A Depression, unspecified; F41.9 Anxiety disorder, unspecified; I10 Essential (primary) hypertension; Z98.890 Other specified postprocedural states; Z90.49 Acquired absence of other specified parts of digestive tract; F17.200 Nicotine dependence, unspecified, uncomplicated